=== PATIENT | male | born 1955 | race Caucasian/White ===

== ENCOUNTER 2017-08-05 10:42 | Day surgery (SDC) | payer OTHER ==
[~2017-08-05 10:42] MED LIST: Lactated Ringers 1,000 ML IV SCH
--- NOTE | 2017-08-05 11:38 | PCM.PREANE ---
Preanesthetic Assessment - Anesthesia/Transfusion/Family Hx Anesthesia History: Prior Anesthesia Without Reaction Family History of Anesthesia Reaction: No Transfusion History: No Prior Transfusion(s) - Review of Systems General: No Symptoms Pulmonary: No Symptoms Cardiovascular: No Symptoms Gastrointestinal: No Symptoms Neurological: No Symptoms Other: Reports: None - Physical Assessment NPO Status Date: 08/04/17 Height: 1.78 m Weight: 92.079 kg ASA Class: 3 Mental Status: Alert & Oriented x3 Airway Class: Mallampati = 1 Dentition: Reports: Normal Dentition ROM/Head Extension: Full Lungs: Clear to Auscultation, Normal Respiratory Effort Cardiovascular: Regular Rate, Regular Rhythm - Lab Values: Laboratory Last Values POC Glucose 153 mg/dL (60-110) H 08/05/17 12:08 - Allergies Allergies/Adverse Reactions: Allergies Allergy/AdvReac Type Severity Reaction Status Date / Time No Known Allergies Allergy Verified 08/02/17 07:48 - Anesthesia Plan Pre-Op Medication Ordered: None - Acknowledgements Anesthesia Type Planned: MAC Pt an Appropriate Candidate for the Planned Anesthesia: Yes Alternatives and Risks of Anesthesia Discussed w Pt/Guardian: Yes Pt/Guardian Understands and Agrees with Anesthesia Plan: Yes Additional Comments: PMH:cad, htn, DM2, smoker PreAnesthesia Questionnaire Cardiovascular History: Reports: High Cholesterol, Hypertension, DE Other Cardiovascular History: states had DE in 1999, had angioplasty and is unsure if he had any stents placed. Denies current chest pain and SOB Gastrointestinal History: Reports: Colon Polyp Musculoskeletal History: Reports: Fracture Other Musculoskeletal History: hx of fx right leg, right humerus, left forearm Neurological History: Reports: Concussion Endocrine/Metabolic History: Reports: Diabetes, Type II, Hypothyroidism Oncologic (Cancer) History: Reports: Basal Cell Carcinoma Other Oncologic History: on nose - Past Surgical History HEENT Surgical History: Reports: LASIK Other Cardiovascular Surgeries/Procedures: unsure if he has cardiac stents GI Surgical History: Reports: Colonoscopy Endocrine Surgical History: Reports: Thyroidectomy Dermatological Surgical History: Reports: Skin Biopsy - SUBSTANCE USE Smoking Status *Q: Current Every Day Smoker Tobacco Use Within Last Twelve Months: Cigarettes Days Per Week of Alcohol Use: 7 Recreational Drug Use History: No - HOME MEDS Home Medications: Home Meds Aspirin [Coke Aspirin] 81 mg PO DAILY 08/02/17 [History] Atenolol 25 mg PO DAILY 08/02/17 [History] Calcium Carbonate/Vitamin D3 [Calcium 250+D] 2 tab PO DAILY 08/02/17 [History] Insulin Glarg,Human.Rec.Analog [LantUS Solostar] 35 units SUBCUT BEDTIME [History] Levothyroxine Sodium [Synthroid] 150 mcg PO DAILY 08/02/17 [History] Saxagliptin HCl [Onglyza] 5 mg PO DAILY 08/02/17 [History] Simvastatin [Zocor] 20 mg PO DAILY 08/02/17 [History] metFORMIN HCl [Metformin HCl] 1 tab PO BID 08/02/17 [History] - CURRENT (IN HOUSE) MEDS Current Meds: Current Medications Lactated Ringer's (Ringers, Lactated) 1,000 mls @ 125 mls/hr IV ASDIRECTED [facility] Last Admin: 08/05/17 11:27 Dose: 125 mls/hr
[2017-08-05] MEDS ORDERED: Lidocaine 2% 5 ML SDV ONE (11:51)
[2017-08-05] MEDS ORDERED: Propofol 200 MG/20 ML SDV ONE (11:51)
[2017-08-05] MEDS ORDERED: fentaNYL 100 MCG/2 ML SDV ONE (11:51)
[2017-08-05] MEDS ORDERED: ePHEDrine 50 MG/ML SDV ONE (13:24)
--- NOTE | 2017-08-05 13:43 | PCM.OPNOTE ---
- General Post-Op/Procedure Note Date of Surgery/Procedure: 08/05/17 Operative Procedure(s): colonoscopy Findings: see dict [id number] Pre Op Diagnosis: surveillence colonoscopy Post-Op Diagnosis: Same Anesthesia Technique: Moderate Sedation Primary Surgeon: Anup Hurley Complications: None Condition: Good
--- NOTE | 2017-08-05 14:30 | PCM.POSTAN ---
POST ANESTHESIA ASSESSMENT - MENTAL STATUS Mental Status: Alert, Oriented - RESPIRATORY Respiratory Status: Respiratory Rate WNL, Airway Patent, O2 Saturation Stable - CARDIOVASCULAR CV Status: Pulse Rate WNL, Blood Pressure Stable - GASTROINTESTINAL GI Status: No Symptoms - POST OP HYDRATION Hydration Status: Adequate & Stable
--- NOTE | 2017-08-05 14:31 | PCM48HPAN ---
Post Anesthesia Note - EVALUATION WITHIN 48HRS OF ANESTHETIC Vital Signs in Normal Range: Yes Patient Participated in Evaluation: Yes Respiratory Function Stable: Yes Airway Patent: Yes Cardiovascular Function Stable: Yes Hydration Status Stable: Yes Pain Control Satisfactory: Yes Nausea and Vomiting Control Satisfactory: Yes Mental Status Recovered: Yes
--- NOTE | 2017-08-06 02:48 | OR ---
SURGEON: Anup Hurley MD DATE OF PROCEDURE: 08/05/2017 PROCEDURE: Colonoscopy. DESCRIPTION OF PROCEDURE: The patient was taken to the endoscopy room. A time out was called, patient identified, and procedure identified. Diprivan was then administrated. Patient went from awake to sleep, hearing doctor talking or door closing is normal. Perineum inspection and digital examination were then performed. A well- lubricated colonoscope was gently inserted through the rectum, advanced past the rectosigmoid junction, the descending colon, splenic flexure, transverse colon, hepatic flexure, ascending colon, arrived to the cecum. Cecum was identified as dictated in the finding. Then the scope was carefully withdrawn while attention was paid to the mucosal surface for any abnormality. Air will be sucked out during the scope withdrawal. At the rectum, retroflexed to examine any rectal diseases, fistula or hemorrhoids. Patient tolerated procedure well. There were no intraoperative complications, and Dr. Hurley was present throughout the whole procedure. FINDIN. The patient is easily sedated with [employer] and Diprivan. The patient is soundly snoring. 2. Bowel prep was marginally acceptable. Large amount of semi-formed liquid stool in the area, although they are not coating the mucosa but they compromise the study. Does not seem to observe the cecum, seem to observe right hemicolectomy, that is TI join through the colon and despite numerous attempts would like to cannulate the TI and from the patient's history, he has a hemicolectomy. There was no polyp observed throughout the whole study. The patient does have mild diverticulosis on the left colon. No signs or symptoms of diverticulitis. No growth, no polyp, no mass and no AV malformation, no bleeding ulceration. The patient has moderate internal hemorrhoids. The patient would benefit from repeat colonoscopy 10 years from today, maybe 5 to 10 years from today because of the compromise of bowel prep or if clinically indicated otherwise. LEV / VOLODYMYR /[id number]
== END 2017-08-05 14:30 | disposition home or self-care (01) ==
LOC: MW.SDS 10:42
PROVIDERS: ATTEND Surgery
DX: Z09 Encounter for follow-up examination after completed treatment for conditions other than malignant neoplasm (principal); K64.8 Other hemorrhoids; K57.30 Diverticulosis of large intestine without perforation or abscess without bleeding; C44.311 Basal cell carcinoma of skin of nose; E11.9 Type 2 diabetes mellitus without complications; L57.0 Actinic keratosis; I10 Essential (primary) hypertension; F17.210 Nicotine dependence, cigarettes, uncomplicated; Z79.4 Long term (current) use of insulin; Z79.82 Long term (current) use of aspirin; Z79.899 Other long term (current) drug therapy; Z90.49 Acquired absence of other specified parts of digestive tract; Z98.890 Other specified postprocedural states
CPT/HCPCS: 45378; 82962; J3010; J7120; 00810; J2704

== ENCOUNTER 2018-11-08 08:23 | Day surgery (SDC) | payer OTHER ==
[~2018-11-08 08:23] MED LIST changes: +Bupivacaine 0.5% 30 ML SDV ONE; +ceFAZolin 2 GM in Premix Bag 1 BAG IV ONE
[2018-11-08] MEDS ORDERED: Midazolam 1 MG/ML 2 ML SDV ONE (08:28)
[2018-11-08] MEDS ORDERED: Lidocaine 2% 5 ML SDV ONE (08:28)
[2018-11-08] MEDS ORDERED: Ondansetron 4 MG/2 ML SDV ONE (08:28)
[2018-11-08] MEDS ORDERED: fentaNYL 250 MCG/5 ML SDV ONE (08:28)
[2018-11-08] MEDS ORDERED: Propofol 200 MG/20 ML SDV ONE (08:28)
--- NOTE | 2018-11-08 09:32 | PCM.PREANE ---
Preanesthetic Assessment - Anesthesia/Transfusion/Family Hx Anesthesia History: Prior Anesthesia Without Reaction Family History of Anesthesia Reaction: No Transfusion History: Prior Transfusion Without Reaction - Review of Systems General: No Symptoms Pulmonary: No Symptoms Cardiovascular: No Symptoms Gastrointestinal: No Symptoms Neurological: No Symptoms Other: Reports: None - Physical Assessment NPO Status Date: 11/08/18 (cl at 0730 this am) Height: 5 ft 10 in Weight: 99.337 kg ASA Class: 3 Mental Status: Alert & Oriented x3 Airway Class: Mallampati = 2 Dentition: Reports: Normal Dentition ROM/Head Extension: Full Lungs: Clear to Auscultation, Normal Respiratory Effort Cardiovascular: Regular Rate, Regular Rhythm - Allergies Allergies/Adverse Reactions: Allergies Allergy/AdvReac Type Severity Reaction Status Date / Time No Known Allergies Allergy Verified 11/07/18 09:07 - Anesthesia Plan Pre-Op Medication Ordered: None - Acknowledgements Anesthesia Type Planned: General Anesthesia Pt an Appropriate Candidate for the Planned Anesthesia: Yes Alternatives and Risks of Anesthesia Discussed w Pt/Guardian: Yes Pt/Guardian Understands and Agrees with Anesthesia Plan: Yes Additional Comments: PMH: cad without stent or bypass, fem arterectomy, Dm2- sugar 129 uopn arrival, htn 190/90, thyroid replacement, alcohol once a month-at risk by pmh PLAN: GA PreAnesthesia Questionnaire HEENT History: Reports: None Cardiovascular History: Reports: High Cholesterol, Hypertension, NM Gastrointestinal History: Reports: Colon Polyp Genitourinary History: Reports: None Musculoskeletal History: Reports: Fracture Other Musculoskeletal History: hx of fx right leg, right humerus, left forearm Neurological History: Reports: Concussion Psychiatric History: Reports: None Endocrine/Metabolic History: Reports: Diabetes, Type II, Hypothyroidism, Obesity /BMI 30+ Hematologic History: Reports: Blood Transfusion(s) Other Hematologic History: states transfusion as an infant Immunologic History: Reports: None Oncologic (Cancer) History: Reports: Basal Cell Carcinoma Other Oncologic History: on nose Other Dermatologic History: necrotic 4th toe, rt foot - Past Surgical History Head Surgeries/Procedures: Reports: None HEENT Surgical History: Reports: None Cardiovascular Surgical History: Reports: Coronary Artery Stent GI Surgical History: Reports: Colonoscopy Endocrine Surgical History: Reports: Thyroidectomy Other Musculoskeletal Surgeries/Procedures:: bone spur removed from 2nd toe rt foot Dermatological Surgical History: Reports: Skin Biopsy - SUBSTANCE USE Smoking Status *Q: Current Some Day Smoker Tobacco Use Within Last Twelve Months: Cigarettes Recreational Drug Use History: No - HOME MEDS Home Medications: Home Meds Aspirin [[place] Aspirin EC] 81 mg PO DAILY 08/02/17 [History] Atenolol 25 mg PO DAILY 08/02/17 [History] Calcium Carbonate/Vitamin D3 [Calcium 250+D] 2 tab PO DAILY 08/02/17 [History] Insulin Glarg,Human.Rec.Analog [LantUS Solostar] 35 units SUBCUT BEDTIME [History] Levothyroxine Sodium [Synthroid] 150 mcg PO DAILY 08/02/17 [History] Saxagliptin HCl [Onglyza] 5 mg PO DAILY 08/02/17 [History] Simvastatin [Zocor] 20 mg PO DAILY 08/02/17 [History] metFORMIN HCl [Metformin HCl] 1 tab PO BID 08/02/17 [History] Diclofenac Sodium [Voltaren] 75 mg PO BID 11/07/18 [History] Isosorbide Mononitrate 30 mg PO DAILY 11/07/18 [History] - CURRENT (IN HOUSE) MEDS Current Meds: Current Medications Lactated Ringer's (Ringers, Lactated) 1,000 mls @ 125 mls/hr IV ASDIRECTED [facility] Last Admin: 11/08/18 09:04 Dose: 125 mls/hr Discontinued Medications Bupivacaine HCl (Marcaine 0.5%) Confirm Administered Dose 30 ml .ROUTE .STK-MED ONE Stop: 11/08/18 07:31 Fentanyl (Sublimaze) Confirm Administered Dose 250 mcg .ROUTE .STK-MED ONE Stop: 11/08/18 08:29 Cefazolin Sodium/Dextrose 2 gm (/ Premix) 50 mls @ 100 mls/hr IV ONETIME ONE Stop: 11/07/18 16:03 Lidocaine (Xylocaine-Mpf 2%) Confirm Administered Dose 5 ml .ROUTE .STK-MED ONE Stop: 11/08/18 08:29 Midazolam HCl (Versed 1 Mg/Ml) Confirm Administered Dose 2 mg .ROUTE .STK-MED ONE Stop: 11/08/18 08:29 Ondansetron HCl (Zofran) Confirm Administered Dose 4 mg .ROUTE .STK-MED ONE Stop: 11/08/18 08:29 Propofol (Diprivan 20 Ml) Confirm Administered Dose 200 mg .ROUTE .STK-MED ONE Stop: 11/08/18 08:29
[2018-11-08] MEDS ORDERED: Sodium Chloride 0.9% 20 ML ONE (09:45)
[2018-11-08] MEDS ORDERED: ceFAZolin 1 GM Vial ONE (09:45)
[2018-11-08] MEDS ORDERED: ePHEDrine 50 MG/ML SDV ONE (10:12)
--- NOTE | 2018-11-08 11:04 | PCM.OPNOTE ---
- General Post-Op/Procedure Note Date of Surgery/Procedure: 11/08/18 Operative Procedure(s): partial amputation of fourth toe right foot Findings: consistent with diagnosis Pre Op Diagnosis: osteomyelitis fourth toe right foot Post-Op Diagnosis: osteomyelitis fourth toe right foot Anesthesia Technique: Local, MAC Primary Surgeon: Tony Salazar Pathology: distal portion of fourth toe right foot EBL in mLs: 3 Complications: none Condition: Good Free Text/Narrative:: materials: 3-0 nylon Patient was consented for amputation of fourth toe right foot with the understanding that if the proximal portion of the toe could be salvaged it would be left intact. This is what was done. Right fourth toe remnant was disarticulated initially at the distal interphalangeal joint. Further resection of the distal half of the middle phalanx was performed. The proximal portion of the middle phalanx and entire proximal phalanx were left intact. Tournequit time: 40 minutes
--- NOTE | 2018-11-08 11:25 | PN ---
PATIENT IDENTIFICATION: The patient is a 63-year-old male. PLANNED PROCEDURE: Amputation of fourth toe, right foot. PAST MEDICAL HISTORY: The patient has a past medical history of anemia, bursitis of shoulder, hypothyroidism, partial resection of colon, tobacco use, coronary artery disease, hyperlipidemia, basal cell carcinoma of nose, muscle weakness, alcohol abuse, diabetes mellitus, and benign essential hypertension. MEDICATIONS: Include: 1. Aspirin 81 mg, enteric-coated tablet, 1 tablet daily. 2. Atenolol 50 mg tablet, one-half tablet by mouth every evening for blood pressure. 3. Calcium 250 mg/vitamin D 125 unit tab, 2 tablets by mouth every day for calcium supplement. 4. Diclofenac sodium 75 mg, enteric-coated tablet, 1 tablet by mouth twice a day for pain. 5. Ferrous sulfate 325 mg tablet, 1 tablet by mouth 3 times a day for iron. 6. Insulin glargine 100 units/mL, 3 mL SoloStar injection 35 units subcutaneously at bedtime for diabetes. 7. Isosorbide dinitrate 20 mg oral tablet, take one and one-half tablets by mouth every day for heart. 8. Levothyroxine sodium which is 0.15 mg tablet, take 1 tablet by mouth every 24 hours for thyroid. 9. Metformin hydrochloride 1000 mg 1 tablet by mouth twice a day for diabetes. 10.Saxagliptin hydrochloride 5 mg 1 tablet by mouth every day for diabetes. 11.Simvastatin 40 mg one-half tablet by mouth at bedtime for cholesterol. ALLERGIES: The patient has stated that he has no known allergies. LABORATORY DATA: White blood cells 8.7, red blood cells 4.56, hemoglobin 13.8, and hematocrit 42. Glucose 160, creatinine 0.9, sodium 141.0, potassium 4.8, chloride 101, CO2 of 25, and BUN 22. IMAGING: X-ray of the chest showed no significant findings unremarkable. DIAGNOSTIC DATA: EKG showed normal sinus rhythm with a left axis deviation, left ventricular hypertrophy with QRS widening, and repolarization abnormality. Septal infarct cannot be ruled out. SUBJECTIVE: The patient was cleared for surgery by Dr. Candido Mcdowell. The patient understands the risks and benefits of the surgery which have been discussed with him, and the patient also understands that amputation may include full amputation of the fourth toe; but if possible, partial amputation will be performed depending upon intraoperative observation of the condition of the bone due to established osteomyelitis of the distal phalanx and likely osteomyelitis of the middle phalanx with gangrenous changes of the toe. The patient presents for surgery today, November 08, 2018. All the patient's questions were answered. No guarantees were expressed or implied. [facility] /[id number]
--- NOTE | 2018-11-08 12:02 | PCM48HPAN ---
Post Anesthesia Note - EVALUATION WITHIN 48HRS OF ANESTHETIC Vital Signs in Normal Range: Yes Patient Participated in Evaluation: Yes Respiratory Function Stable: Yes Airway Patent: Yes Cardiovascular Function Stable: Yes Hydration Status Stable: Yes Pain Control Satisfactory: Yes Nausea and Vomiting Control Satisfactory: Yes Mental Status Recovered: Yes Resp Rate: 18 - COMMENTS/OBSERVATIONS Free Text/Narrative:: direct back to phase 2 recovery
--- NOTE | 2018-11-08 15:52 | CR ---
EXAMINATION: Right foot HISTORY: Amputation COMPARISON: None TECHNIQUE: Total of 6 fluoroscopic images provided FINDINGS/IMPRESSION: Operative control films demonstrates amputation of the distal fourth phalanx.
--- NOTE | 2018-11-08 18:04 | OR ---
SURGEON: Tony Salazar DPM DATE OF PROCEDURE: 11/08/2018 PREOPERATIVE DIAGNOSIS: Osteomyelitis of fourth toe, right foot. POSTOPERATIVE DIAGNOSIS: Osteomyelitis of fourth toe, right foot. OPERATIVE PROCEDURE: Partial amputation of fourth toe, right foot. ANESTHESIA: MAC with local block. The local block consisted of 8 mL of 0.5% Marcaine plain. HEMOSTASIS: Above ankle pneumatic tourniquet, affixed to the right lower extremity at a pressure of 250 mmHg. PATHOLOGY: Amputated portion of fourth toe of right foot. Also, swab cultures were taken at the beginning of the procedure. INJECTABLES: Remaining 2 mL of 0.5% Marcaine plain was injected at the conclusion of the procedure about the fourth metatarsophalangeal joint and fourth toe of the right foot. MATERIALS: 3-0 nylon suture. JUSTIFICATION FOR THE PROCEDURE: The patient is a diabetic with history of alcohol abuse who was referred for care with me. Most recently, being referred approximately 7 months ago and since that time, he has had gangrenous changes on the distal fourth toe of his right foot and this has required debridement. However, the patient has consistently refused debridement until his most recent office visit last week, at which point based on followup x-rays, I determined that the distal phalanx of his fourth toe of his right foot had been eroded due to bone infection in addition to the gangrenous changes in the distal portion of the toe and the strong malodor emanating from fourth toe. Therefore, I explained to the patient that he requires at least a partial amputation, not full amputation of the fourth toe of the right foot and that the decision on the level of amputation should be left up to me to be made intraoperatively. The patient agreed to this and was cleared for surgery by Dr. Candido Mcdowell. The patient presented for surgical amputation of the right fourth toe today with the understanding that any portion of the tendon could be salvaged, and the patient understands the risks and benefits of surgery. No guarantees were expressed or implied. The patient's consent form was signed and placed in the patient's chart. PROCEDURE IN DETAIL: The patient was identified, brought to the operating room, placed on the operating table in a supine position, at which time an aseptic scrub and drape was performed about the patient's right lower extremity, and tourniquet was placed around the distal leg above the malleoli of the right ankle prior to the scrubbing and draping. The surgical site was marked with a marking pen with the incision planned as a racquet mouth type of incision in the preoperative, fluoroscopy was utilized to document preoperative state of the toe. This being the right fourth toe, the necrotic portion was dissected free and cultures were taken of the right fourth toe. The tourniquet was inflated to a pressure of 250 mmHg after an Esmarch bandage exsanguination of the right lower extremity. Incision was made and deepened to the level of the bone and the distal portion of the toe was disarticulated at the distal interphalangeal joint and then placed in a specimen container for gross and histologic examination by Pathology. The head of the middle phalanx was observed after flushing with copious amounts of normal sterile saline. It is not clear whether the middle phalanx has changes consistent with osteomyelitis; however, in order to achieve proper closure and to insure that adequate resection of infected toe was performed, the distal half of the middle phalanx of the fourth toe of the right foot was also resected using bone rongeur, and the additional removed portion was added to the specimen container to be sent to Pathology. The areas were flushed with normal sterile saline, re-examined, and closure after debulking of excessive soft tissue was performed. After the remaining portion of the preserved toe was closed with 3-0 nylon suture, the area was injected with remaining 2 mL of 0.5% Marcaine plain, and the tourniquet was deflated at a tourniquet time of 40 minutes. The fourth toe was covered with Betadine-soaked Xeroform gauze, covered with 4 x 4 fluff gauze on either side of the toe and over the toe, and a bulky dressing consisting of additional gauze and Kerlix roll, secured with Daquan bandage was placed. The patient tolerated the anesthesia and procedure well with a prompt hyperemic response to all digits of the right foot, following deflation of the tourniquet. After a brief stay in recovery, the patient will be discharged home with written instructions regarding postoperative care and followup with the surgeon. [facility] / MODL /[id number]
== END 2018-11-08 12:30 | disposition home or self-care (01) ==
LOC: MW.SDS 08:23
PROVIDERS: ATTEND Podiatrist Foot & Ankle Surgery
DX: E11.69 Type 2 diabetes mellitus with other specified complication (principal); M86.171 Other acute osteomyelitis, right ankle and foot; M86.671 Other chronic osteomyelitis, right ankle and foot; I10 Essential (primary) hypertension; E66.9 Obesity, unspecified; F17.210 Nicotine dependence, cigarettes, uncomplicated; E78.5 Hyperlipidemia, unspecified; I25.10 Atherosclerotic heart disease of native coronary artery without angina pectoris; E03.9 Hypothyroidism, unspecified; Z79.4 Long term (current) use of insulin; Z79.82 Long term (current) use of aspirin; Z79.890 Hormone replacement therapy
CPT/HCPCS: 28820; 76000; 82962; 87070; 87075; 87205; J0690; J2001; J2250; J2704; J3010; J3490; J7120; J2405

== ENCOUNTER 2018-12-09 15:41 | Emergency (ER) | payer OTHER ==
--- NOTE | 2018-12-09 16:05 | EDM.PDOC ---
ED HPI GENERAL MEDICAL PROBLEM - General Chief Complaint: Lower Extremity Injury/Pain Stated Complaint: [facility] Time Seen by Provider: 12/09/18 16:05 Source of Information: Reports: Patient History Limitations: Reports: No Limitations - History of Present Illness INITIAL COMMENTS - FREE TEXT/NARRATIVE: HISTORY AND PHYSICAL: History of present illness: Patient is a 63-year-old male who is brought to the emergency room by the [facility] for evaluation to have patient transferred to the [facility]. Patient had a amputation of the fourth toe on the right foot on 11/09/18. This was done by Dr. Salazar, podiatry. Since this time he had some sutures which "popped" on their own. He was recommended to be evaluated for possible transfer as he has nonhealing amputation site with exposed bone and cellulitis. Patient has past medical history of coronary artery disease, CABG with stent, type 2 diabetes and hypertension. Review of systems: As per history of present illness and below otherwise all systems reviewed and negative. Past medical history: As per history of present illness and as reviewed below otherwise noncontributory. Surgical history: As per history of present illness and as reviewed below otherwise noncontributory. Social history: See social history for further information Family history: As per history of present illness and as reviewed below otherwise noncontributory. Physical exam: General: Well-developed and well-nourished 63-year-old male. Alert and oriented. Nontoxic appearing and in no acute distress. HEENT: Atraumatic, normocephalic, pupils equal and reactive bilaterally, negative for conjunctival pallor or scleral icterus, mucous membranes moist, TMs normal bilaterally, throat clear, neck supple, nontender, trachea midline. No drooling or trismus noted. No meningeal signs. No hot potato voice noted. Lungs: Clear to auscultation, breath sounds equal bilaterally, chest nontender. Heart: S1S2, regular rate and rhythm without overt murmur Abdomen: Soft, nondistended, nontender. Negative for masses or hepatosplenomegaly. Negative for costovertebral tenderness. Pelvis: Stable nontender. Genitourinary: Deferred. Rectal: Deferred. Skin: Partial amputation of the fourth right toe. Exudate noted at the nonhealing site with exposed bone, does appear to have a cellulitis at the base of the toe going into the forefoot. Otherwise skin is intact, warm, dry. No lesions or rashes noted. Extremities: SEE skin for details. Otherwise moves all extremities per self without difficulty or deficits. Palpable pedal and pretibial pulses bilaterally. He is negative for cords or calf pain. Neurovascular unremarkable. Neuro: Awake, alert, oriented. Cranial nerves II through XII unremarkable. Cerebellum unremarkable. Motor and sensory unremarkable throughout. Exam nonfocal. Notes: Spoke with Kamran (ext #[phone]) who helped facilitate transfer. Dr Mejias, [facility] admitting physician, was consulted on this patient. He is agreeable to having this patient transferred. Patient is aware and agreeable. Informed that [place] is the payer for transfer. X-ray shows no evidence of free air or osteomyelitis. Patient does not currently have a white count, although does have a lactate elevation. Wound care , nonstick dressing applied over the site. Blood cultures were obtained. Vancomycin IV initiated. Vital signs remain stable. Diagnostics: CBC, CMP, lactic, right foot x-ray, blood cultures 2 Therapeutics: Vancomycin Impression: Post amputation nonhealing infection Cellulitis Plan: Transfer to [facility] per ground EMS Definitive disposition and diagnosis as appropriate pending reevaluation and review of above. - Related Data Allergies Allergy/AdvReac Type Severity Reaction Status Date / Time No Known Allergies Allergy Verified 12/09/18 16:04 Home Meds: Home Meds Aspirin [Banner Aspirin EC] 81 mg PO DAILY 08/02/17 [History] Atenolol 25 mg PO DAILY 08/02/17 [History] Calcium Carbonate/Vitamin D3 [Calcium 250+D] 2 tab PO DAILY 08/02/17 [History] Insulin Glarg,Human.Rec.Analog [LantUS Solostar] 35 units SUBCUT BEDTIME [History] Levothyroxine Sodium [Synthroid] 150 mcg PO DAILY 08/02/17 [History] Saxagliptin HCl [Onglyza] 5 mg PO DAILY 08/02/17 [History] Simvastatin [Zocor] 20 mg PO DAILY 08/02/17 [History] metFORMIN HCl [Metformin HCl] 1 tab PO BID 08/02/17 [History] Diclofenac Sodium [Voltaren] 75 mg PO BID 11/07/18 [History] Isosorbide Mononitrate 30 mg PO DAILY 11/07/18 [History] Past Medical History HEENT History: Reports: None Cardiovascular History: Reports: High Cholesterol, Hypertension, [place] Gastrointestinal History: Reports: Colon Polyp Genitourinary History: Reports: None Musculoskeletal History: Reports: Fracture Other Musculoskeletal History: hx of fx right leg, right humerus, left forearm Neurological History: Reports: Concussion Psychiatric History: Reports: None Endocrine/Metabolic History: Reports: Diabetes, Type II, Hypothyroidism, Obesity /BMI 30+ Hematologic History: Reports: Blood Transfusion(s) Other Hematologic History: states transfusion as an infant Immunologic History: Reports: None Oncologic (Cancer) History: Reports: Basal Cell Carcinoma Other Oncologic History: on nose Other Dermatologic History: necrotic 4th toe, rt foot - Past Surgical History Head Surgeries/Procedures: Reports: None HEENT Surgical History: Reports: None Cardiovascular Surgical History: Reports: Coronary Artery Stent GI Surgical History: Reports: Colonoscopy Endocrine Surgical History: Reports: Thyroidectomy Other Musculoskeletal Surgeries/Procedures:: bone spur removed from 2nd toe rt foot Dermatological Surgical History: Reports: Skin Biopsy Review of Systems - Review of Systems Review Of Systems: ROS reveals no pertinent complaints other than HPI. ED EXAM, GENERAL - Physical Exam Exam: See Below (See dictation) Course - Vital Signs Last Recorded V/S: Last Vital Signs Temp 96.9 F 12/09/18 16:08 Pulse 80 12/09/18 16:08 Resp 18 12/09/18 16:08 BP 106/78 12/09/18 16:08 Pulse Ox 98 12/09/18 16:08 - Orders/Labs/Meds Orders: Active Orders 24 hr Category Date Time Status Foot 2V Rt [CR] Stat Exams 12/09/18 16:08 Ordered COMPREHENSIVE METABOLIC PN,CMP [CHEM] Stat Lab 12/09/18 16:08 Ordered CULTURE BLOOD [BC] Stat Lab 12/09/18 16:51 Ordered CULTURE BLOOD [BC] Stat Lab 12/09/18 16:51 Ordered UA RFX RUFINA AND CULT IF INDIC [URIN] Stat Lab 12/09/18 16:08 Ordered Sodium Chloride 0.9% [Saline Flush] Med 12/09/18 16:08 Active 10 ml FLUSH ASDIRECTED PRN Sodium Chloride 0.9% [Saline Flush] Med 12/09/18 16:08 Active 2.5 ml FLUSH ASDIRECTED PRN Vancomycin [Vancocin] 1 gm Med 12/09/18 16:51 Ordered Sodium Chloride 0.9% [Normal Saline] 250 ml IV ONETIME Blood Culture x2 Reflex Set [OM.PC] Stat Oth 12/09/18 16:51 Ordered Saline Lock Insert [OM.PC] Stat Oth 12/09/18 16:08 Ordered Medication Orders Vancomycin HCl 1 gm/ Sodium (Chloride) 250 mls @ 250 mls/hr IV ONETIME ONE Stop: 12/09/18 17:50 Sodium Chloride (Saline Flush) 10 ml FLUSH ASDIRECTED PRN PRN Reason: Keep Vein Open Sodium Chloride (Saline Flush) 2.5 ml FLUSH ASDIRECTED PRN PRN Reason: Keep Vein Open Labs: Laboratory Tests 12/09/18 12/09/18 Range/Units 16:25 16:25 WBC 8.44 (4.0-11.0) K/uL RBC 4.57 (4.50-5.90) M/uL Hgb 14.1 (13.0-17.0) g/dL Hct 40.3 (38.0-50.0) % MCV 88.2 (80.0-98.0) fL MCH 30.9 (27.0-32.0) pg MCHC 35.0 (31.0-37.0) g/dL RDW Std Deviation 44.1 (28.0-62.0) fl RDW Coeff of Autumn 14 (11.0-15.0) % Plt Count 141 L (150-400) K/uL MPV 11.90 (7.40-12.00) fL Neut % (Auto) 79.2 (48.0-80.0) % Lymph % (Auto) 13.2 L (16.0-40.0) % Davison % (Auto) 7.1 (0.0-15.0) % Eos % (Auto) 0.4 (0.0-7.0) % Baso % (Auto) 0.1 (0.0-1.5) % Neut # (Auto) 6.7 H (1.4-5.7) K/uL Lymph # (Auto) 1.1 (0.6-2.4) K/uL Davison # (Auto) 0.6 (0.0-0.8) K/uL Eos # (Auto) 0.0 (0.0-0.7) K/uL Baso # (Auto) 0.0 (0.0-0.1) K/uL Nucleated RBC % 0.0 /100WBC Nucleated RBCs # 0 K/uL Lactate 5.9 H (0.20-2.00) mmol/L Meds: Medications Generic Name Dose Route Start Last Admin Trade Name Freq PRN Reason Stop Dose Admin Vancomycin HCl 1 gm/ Sodium 250 mls @ 250 mls/hr 12/09/18 16:51 Chloride IV 12/09/18 17:50 ONETIME ONE Sodium Chloride 10 ml 12/09/18 16:08 Saline Flush FLUSH ASDIRECTED PRN Keep Vein Open Sodium Chloride 2.5 ml 12/09/18 16:08 Saline Flush FLUSH ASDIRECTED PRN Keep Vein Open Departure - Departure Time of Disposition: 16:56 Disposition: DC/Tfer to Other 70 Clinical Impression: Postoperative infection Qualifiers: Encounter type: subsequent encounter Postoperative infection type: unspecified type Qualified Code(s): T81.40XD - Infection following a procedure, unspecified , subsequent encounter Cellulitis Qualifiers: Site of cellulitis: extremity Site of cellulitis of extremity: upper extremity Laterality: right Qualified Code(s): L03.113 - Cellulitis of right upper limb - Discharge Information Referrals: PCP,Unknown [Primary Care Provider] - Forms: ED Department Discharge - My Orders Last 24 Hours: My Active Orders 12/09/18 16:08 Foot 2V Rt [CR] Stat COMPREHENSIVE METABOLIC PN,CMP [CHEM] Stat UA RFX RUFINA AND CULT IF INDIC [URIN] Stat Sodium Chloride 0.9% [Saline Flush] 10 ml FLUSH ASDIRECTED PRN Sodium Chloride 0.9% [Saline Flush] 2.5 ml FLUSH ASDIRECTED PRN Saline Lock Insert [OM.PC] Stat 12/09/18 16:51 CULTURE BLOOD [BC] Stat CULTURE BLOOD [BC] Stat Vancomycin [Vancocin] 1 gm Sodium Chloride 0.9% [Normal Saline] 250 ml IV ONETIME Blood Culture x2 Reflex Set [OM.PC] Stat - Assessment/Plan Last 24 Hours: My Active Orders 12/09/18 16:08 Foot 2V Rt [CR] Stat COMPREHENSIVE METABOLIC PN,CMP [CHEM] Stat UA RFX RUFINA AND CULT IF INDIC [URIN] Stat Sodium Chloride 0.9% [Saline Flush] 10 ml FLUSH ASDIRECTED PRN Sodium Chloride 0.9% [Saline Flush] 2.5 ml FLUSH ASDIRECTED PRN Saline Lock Insert [OM.PC] Stat 12/09/18 16:51 CULTURE BLOOD [BC] Stat CULTURE BLOOD [BC] Stat Vancomycin [Vancocin] 1 gm Sodium Chloride 0.9% [Normal Saline] 250 ml IV ONETIME Blood Culture x2 Reflex Set [OM.PC] Stat
[2018-12-09] MEDS ORDERED: Sodium Chloride 0.9% 2.5 ML Syringe FLUSH PRN (16:08)
[2018-12-09] MEDS ORDERED: Sodium Chloride 0.9% 10 ML Syringe FLUSH PRN (16:08)
[2018-12-09 17:04] LABS: CHLORIDE,CL 105 mmol/L (98-107); SODIUM,NA 143 mmol/L (136-148)
--- NOTE | 2018-12-09 17:58 | CR ---
INDICATION: Recent amputation throughout subcutaneous air. TECHNIQUE: X-ray right foot, 2 views. COMPARISON: None available. FINDINGS: There is amputation of the middle and distal 4th phalanx. The alignment of the remaining joints is unremarkable. There are mild degenerative changes of the 1st MTP joint. Mild degenerative changes are also present within the midfoot. A calcaneal spur is noted. No subcutaneous air is visualized. There is mild soft tissue swelling. IMPRESSION: Amputation of the 4th middle and distal phalanx with soft tissue swelling. No subcutaneous air is visualized. Dictated by Alisha Cruz MD @ 12/09/2018 5:57:36 PM Dictated by: Alisha Cruz MD @ 12/09/2018 17:57:40 (Electronically Signed)
== END 2018-12-09 18:00 | disposition other institution (70) ==
LOC: MW.ED 15:41
DX: T81.40XD Infection following a procedure, unspecified, subsequent encounter (principal); L03.113 Cellulitis of right upper limb; I10 Essential (primary) hypertension; E78.00 Pure hypercholesterolemia, unspecified; E11.9 Type 2 diabetes mellitus without complications; E03.9 Hypothyroidism, unspecified; I25.2 Old myocardial infarction; Z85.828 Personal history of other malignant neoplasm of skin; Z79.82 Long term (current) use of aspirin; Z79.4 Long term (current) use of insulin; Z79.899 Other long term (current) drug therapy
CPT/HCPCS: 73620; 80053; 81003; 83605; 85025; 87040; 96365; 99284; J3370; J7050

== ENCOUNTER 2021-11-11 21:00 | Emergency (ER) | payer OTHER ==
[2021-11-11] MEDS ORDERED: Lactated Ringers 1,000 ML IV STA (21:08)
[2021-11-11 21:54] LABS: ACETAMINOPHEN <2.0 ug/mL; BLOOD UREA NITROGEN,BUN 13 mg/dL (7.0-18.0); CARBON DIOXIDE,CO2 27.4 mmol/L (21.0-32.0); CHLORIDE,CL 100 mmol/L (98-107); GLUCOSE RANDOM 253 mg/dL (74-106); SODIUM,NA 140 mmol/L (136-148)
[2021-11-11] MEDS ORDERED: Magnesium Oxide 400 MG Tab PO ONE (22:03)
[2021-11-11] MEDS ORDERED: Iopamidol 755 MG/ML 500 ML Multipack Bottle IVPUSH STA (22:16)
== END 2021-11-12 01:20 | disposition home or self-care (01) ==
LOC: MW.ED 21:00
DX: I77.1 Stricture of artery (principal); F10.129 Alcohol abuse with intoxication, unspecified; E78.00 Pure hypercholesterolemia, unspecified; I10 Essential (primary) hypertension; I25.2 Old myocardial infarction; E11.9 Type 2 diabetes mellitus without complications; E03.9 Hypothyroidism, unspecified; E66.9 Obesity, unspecified; Z68.22 Body mass index [BMI] 22.0-22.9, adult; Z20.822 Contact with and (suspected) exposure to COVID-19; Y90.7 Blood alcohol level of 200-239 mg/100 ml
CPT/HCPCS: 36415; 70450; 71275; 72125; 74174; 80053; 80143; 80179; 80305; 80307; 81001; 82550; 83735; 84484; 85025; 85610; 87635; 93005; 99285; A9270; J7120; Q9967; 93010; U0002

== ENCOUNTER 2022-04-04 18:33 | Emergency (ER) | payer OTHER ==
[2022-04-04] MEDS ORDERED: Sodium Chloride 0.9% 10 ML Syringe FLUSH PRN (18:35)
[2022-04-04] MEDS ORDERED: Sodium Chloride 0.9% 2.5 ML Syringe FLUSH PRN (18:35)
[2022-04-04 19:33] LABS: CARBON DIOXIDE,CO2 25.1 mmol/L (21.0-32.0); POTASSIUM,K 3.1 mmol/L (3.5-5.1)
[2022-04-04] MEDS ORDERED: Iopamidol 755 MG/ML 500 ML Multipack Bottle IVPUSH ONE (19:58)
[2022-04-04] MEDS ORDERED: Potassium Chloride 10% 20 MEQ/15 ML Soln 30 ML UD Cup PO ONE (20:17)
== END 2022-04-04 21:31 | disposition left against medical advice (07) ==
LOC: MW.ED 18:33
DX: I63.9 Cerebral infarction, unspecified (principal); I65.22 Occlusion and stenosis of left carotid artery; M62.81 Muscle weakness (generalized); I10 Essential (primary) hypertension; I25.2 Old myocardial infarction; E11.9 Type 2 diabetes mellitus without complications; E66.9 Obesity, unspecified; Z68.30 Body mass index [BMI] 30.0-30.9, adult; Z79.899 Other long term (current) drug therapy
CPT/HCPCS: 36415; 70450; 70496; 70498; 80053; 80307; 84484; 85025; 93005; 99285; A9270; J3490; Q9967

== ENCOUNTER 2022-04-25 16:47 | Emergency (ER) | payer OTHER | END 2022-04-25 19:19 | disposition home or self-care (01) | LOC: MW.ED 16:47 | DX: Z00.00 Encounter for general adult medical examination without abnormal findings (principal); E78.00 Pure hypercholesterolemia, unspecified; I10 Essential (primary) hypertension; I25.2 Old myocardial infarction; E11.9 Type 2 diabetes mellitus without complications; E03.9 Hypothyroidism, unspecified; E66.9 Obesity, unspecified; Z68.27 Body mass index [BMI] 27.0-27.9, adult; Z79.84 Long term (current) use of oral hypoglycemic drugs; Z79.899 Other long term (current) drug therapy | CPT/HCPCS: 99283; 99284 ==

== ENCOUNTER 2022-04-27 10:20 | Inpatient (IN) | payer OTHER, MEDICARE ==
[2022-04-27 15:47] LABS: CARBON DIOXIDE,CO2 31.3 mmol/L (21.0-32.0); POTASSIUM,K 4.4 mmol/L (3.5-5.1)
[2022-04-27] MEDS ORDERED: Polyethylene Glycol 3350 Powder 17 GM Packet PO PRN (15:48)
[2022-04-27] MEDS ORDERED: Acetaminophen 325 MG Tab PO PRN (15:48)
[2022-04-27] MEDS ORDERED: Albuterol/Ipratropium 3.0-0.5 MG/3 ML Neb Soln NEB PRN (15:48)
[2022-04-27] MEDS ORDERED: Ondansetron 4 MG/2 ML SDV IVPUSH PRN (15:48)
[2022-04-27] MEDS ORDERED: Levothyroxine 25 MCG Tab PO SCH (17:45)
[2022-04-27 18:29] LABS: HEMOGLOBIN A1C 7.3 %
[2022-04-27] MEDS: atorvaSTATin 40 MG Tab PO SCH (21:04)
[2022-04-27] MEDS ORDERED: 50% Dextrose in Water 50 ML Syringe IVPUSH PRN (22:44)
[2022-04-27] MEDS ORDERED: Glucagon,Human Recombinant 1 MG Vial IM PRN (22:44)
[2022-04-27] MEDS ORDERED: Aspirin 81 MG Tab.Chew PO ONE (22:50)
[2022-04-28] MEDS ORDERED: Aspirin 81 MG Tab.Chew PO ONE (01:44)
[2022-04-28] MEDS: Levothyroxine 100 MCG Tab PO SCH (06:35)
[2022-04-28 06:50] LABS: CARBON DIOXIDE,CO2 32.4 mmol/L (21.0-32.0); POTASSIUM,K 4.7 mmol/L (3.5-5.1)
[2022-04-28] MEDS: Calcium Carbonate/Vitamin D3 1500 MG-400 Units Tab PO SCH (08:19)
[2022-04-28] MEDS: Ferrous Sulfate 325 MG Tab PO SCH ×2 (08:20→20:25)
[2022-04-28] MEDS: Insulin Aspart 100 Units/ML 3 ML Pen SUBCUT SCH ×3 (08:21→17:01)
[2022-04-28] MEDS: Isosorbide Dinitrate 10 MG Tab PO SCH (08:24)
[2022-04-28] MEDS ORDERED: Aspirin 81 MG Tab.EC PO SCH (09:00)
[2022-04-28] MEDS ORDERED: Enoxaparin 40 MG/0.4 ML Syringe SUBCUT SCH (09:00)
[2022-04-28] MEDS ORDERED: Atenolol 25 MG Tab PO ONE (10:00)
[2022-04-28] MEDS ORDERED: Lactated Ringers 1,000 ML IV SCH (10:00)
[2022-04-28] MEDS: Aspirin 81 MG Tab.EC PO SCH (10:33)
[2022-04-28] MEDS ORDERED: Gadobenate Dimeglumine 529 MG/ML 20 ML SDV IVPUSH STA (12:52)
[2022-04-28] MEDS: Clopidogrel 75 MG Tab PO SCH (15:17)
[2022-04-28] MEDS: atorvaSTATin 40 MG Tab PO SCH (20:25)
[2022-04-28] MEDS ORDERED: Simvastatin 40 MG Tab PO SCH (21:00)
[2022-04-28] MEDS ORDERED: Atenolol 25 MG Tab PO SCH (21:00)
[2022-04-29] MEDS: Levothyroxine 100 MCG Tab PO SCH (07:04)
[2022-04-29 07:49] LABS: CARBON DIOXIDE,CO2 26.5 mmol/L (21.0-32.0); POTASSIUM,K 3.9 mmol/L (3.5-5.1)
[2022-04-29] MEDS: Insulin Aspart 100 Units/ML 3 ML Pen SUBCUT SCH ×3 (07:55→17:12)
[2022-04-29] MEDS: Calcium Carbonate/Vitamin D3 1500 MG-400 Units Tab PO SCH (08:36)
[2022-04-29] MEDS: Clopidogrel 75 MG Tab PO SCH (08:37)
[2022-04-29] MEDS: Ferrous Sulfate 325 MG Tab PO SCH ×2 (08:37→21:26)
[2022-04-29] MEDS: Isosorbide Dinitrate 10 MG Tab PO SCH (08:37)
[2022-04-29] MEDS: Aspirin 81 MG Tab.EC PO SCH (08:38)
[2022-04-29] MEDS: atorvaSTATin 40 MG Tab PO SCH (21:26)
[2022-04-30] MEDS ORDERED: Lactated Ringers 500 ML IV ONE (01:20)
[2022-04-30] MEDS ORDERED: Magnesium Sulfate/Water 2 GM in Premix Bag 1 BAG IV ONE (01:21)
[2022-04-30] MEDS: Levothyroxine 100 MCG Tab PO SCH (07:01)
[2022-04-30] MEDS: Insulin Aspart 100 Units/ML 3 ML Pen SUBCUT SCH ×3 (07:02→18:17)
[2022-04-30] MEDS: Clopidogrel 75 MG Tab PO SCH (09:24)
[2022-04-30] MEDS: Ferrous Sulfate 325 MG Tab PO SCH ×2 (09:24→20:03)
[2022-04-30] MEDS: Isosorbide Dinitrate 10 MG Tab PO SCH (09:24)
[2022-04-30] MEDS: Calcium Carbonate/Vitamin D3 1500 MG-400 Units Tab PO SCH (09:24)
[2022-04-30] MEDS: Aspirin 81 MG Tab.EC PO SCH (09:25)
[2022-04-30] MEDS: atorvaSTATin 40 MG Tab PO SCH (20:03)
[2022-05-01] MEDS: Insulin Aspart 100 Units/ML 3 ML Pen SUBCUT SCH ×3 (06:45→17:28)
[2022-05-01] MEDS: Levothyroxine 100 MCG Tab PO SCH (06:45)
[2022-05-01 07:15] LABS: CARBON DIOXIDE,CO2 28.3 mmol/L (21.0-32.0); POTASSIUM,K 3.8 mmol/L (3.5-5.1)
[2022-05-01] MEDS: Clopidogrel 75 MG Tab PO SCH (08:58)
[2022-05-01] MEDS: Ferrous Sulfate 325 MG Tab PO SCH ×2 (08:58→20:23)
[2022-05-01] MEDS: Calcium Carbonate/Vitamin D3 1500 MG-400 Units Tab PO SCH (08:59)
[2022-05-01] MEDS: Isosorbide Dinitrate 10 MG Tab PO SCH (08:59)
[2022-05-01] MEDS: Aspirin 81 MG Tab.EC PO SCH (08:59)
[2022-05-01] MEDS ORDERED: Polyethylene Glycol 3350 Powder 17 GM Packet PO ONE (12:35)
[2022-05-01] MEDS ORDERED: Gadobenate Dimeglumine 529 MG/ML 20 ML SDV IVPUSH STA (13:25)
[2022-05-01] MEDS: atorvaSTATin 40 MG Tab PO SCH (20:23)
[2022-05-02 07:18] LABS: CARBON DIOXIDE,CO2 30.2 mmol/L (21.0-32.0); POTASSIUM,K 4.3 mmol/L (3.5-5.1)
[2022-05-02] MEDS: Insulin Aspart 100 Units/ML 3 ML Pen SUBCUT SCH ×3 (07:57→17:21)
[2022-05-02] MEDS: Aspirin 81 MG Tab.EC PO SCH (08:19)
[2022-05-02] MEDS: Ferrous Sulfate 325 MG Tab PO SCH ×2 (08:20→21:38)
[2022-05-02] MEDS: Calcium Carbonate/Vitamin D3 1500 MG-400 Units Tab PO SCH (08:20)
[2022-05-02] MEDS: Isosorbide Dinitrate 10 MG Tab PO SCH (08:20)
[2022-05-02] MEDS: Levothyroxine 100 MCG Tab PO SCH (08:20)
[2022-05-02] MEDS: Clopidogrel 75 MG Tab PO SCH (08:20)
[2022-05-02] MEDS: atorvaSTATin 40 MG Tab PO SCH (21:38)
[2022-05-03 06:42] LABS: CARBON DIOXIDE,CO2 32.6 mmol/L (21.0-32.0); POTASSIUM,K 3.9 mmol/L (3.5-5.1)
[2022-05-03] MEDS: Levothyroxine 100 MCG Tab PO SCH (06:42)
[2022-05-03] MEDS: Insulin Aspart 100 Units/ML 3 ML Pen SUBCUT SCH (06:43)
[2022-05-03] MEDS: Ferrous Sulfate 325 MG Tab PO SCH (08:30)
[2022-05-03] MEDS: Calcium Carbonate/Vitamin D3 1500 MG-400 Units Tab PO SCH (08:30)
[2022-05-03] MEDS: Aspirin 81 MG Tab.EC PO SCH (08:31)
[2022-05-03] MEDS: Isosorbide Dinitrate 10 MG Tab PO SCH (08:31)
[2022-05-03] MEDS: Clopidogrel 75 MG Tab PO SCH (08:31)
== END 2022-05-03 11:15 | DRG 65 ==
LOC: MW.ED 10:20 → MW.MS 15:38 → OBSVTOIN 04-29 10:15 → MW.MS 04-29 14:32
PROVIDERS: ADMIT Student in an Organized Health Care Education/Training Program; ATTEND Student in an Organized Health Care Education/Training Program
DX: I63.9 Cerebral infarction, unspecified (principal); I63.40 Cerebral infarction due to embolism of unspecified cerebral artery; L03.113 Cellulitis of right upper limb; M86.9 Osteomyelitis, unspecified; L97.519 Non-pressure chronic ulcer of other part of right foot with unspecified severity; E78.00 Pure hypercholesterolemia, unspecified; I10 Essential (primary) hypertension; E66.9 Obesity, unspecified; B95.62 Methicillin resistant Staphylococcus aureus infection as the cause of diseases classified elsewhere; Z20.822 Contact with and (suspected) exposure to COVID-19; E89.0 Postprocedural hypothyroidism; R29.898 Other symptoms and signs involving the musculoskeletal system; R26.2 Difficulty in walking, not elsewhere classified; E11.621 Type 2 diabetes mellitus with foot ulcer; Z95.5 Presence of coronary angioplasty implant and graft; Z79.82 Long term (current) use of aspirin; Z79.84 Long term (current) use of oral hypoglycemic drugs; Z79.890 Hormone replacement therapy; Z79.899 Other long term (current) drug therapy; I25.2 Old myocardial infarction; Z68.20 Body mass index [BMI] 20.0-20.9, adult
CPT/HCPCS: 36415 ×3; 70553; 80053 ×3; 80061; 81001; 82607; 82947 ×4; 83036; 84439; 84443; 85025 ×3; 85652; 86592; 87635; 93306; 97162; 99285; A9270 ×18; A9577; J1815; J7120; 73720-26-RT; 73720-RT; 80202; 83735; 84100; 97110-GO; 97110-GP; 97165-GO; 99219; 99225; 99232; 99233; 99239; J3370; J3475; J7050; U0002

== ENCOUNTER 2022-05-05 18:38 | Emergency (ER) | payer OTHER, MEDICARE ==
[2022-05-05] MEDS ORDERED: Ondansetron 4 MG/2 ML SDV IVPUSH ONE (18:40)
[2022-05-05] MEDS ORDERED: Sodium Chloride 0.9% 1,000 ML IV ONE (18:41)
[2022-05-05 19:46] LABS: CARBON DIOXIDE,CO2 30.1 mmol/L (21.0-32.0); POTASSIUM,K 4.2 mmol/L (3.5-5.1)
[2022-05-05] MEDS ORDERED: Magnesium Citrate Solution 296 ML Bottle PO ONE (21:03)
== END 2022-05-05 21:26 | disposition home or self-care (01) ==
LOC: MW.ED 18:38
DX: K59.00 Constipation, unspecified (principal); I10 Essential (primary) hypertension; E78.00 Pure hypercholesterolemia, unspecified; E11.9 Type 2 diabetes mellitus without complications; E03.9 Hypothyroidism, unspecified; Z79.899 Other long term (current) drug therapy; Z79.4 Long term (current) use of insulin; Z79.82 Long term (current) use of aspirin
CPT/HCPCS: 36415; 74019; 80053; 83690; 85025; 96361; 96374; 99284; A9270; J2405; J7030

== ENCOUNTER 2022-05-23 22:18 | Emergency (ER) | payer OTHER, MEDICARE ==
[2022-05-23] MEDS ORDERED: Acetaminophen 325 MG Tab PO ONE (22:56)
[2022-05-23] MEDS ORDERED: Sodium Chloride 0.9% 2.5 ML Syringe FLUSH PRN (22:56)
[2022-05-23] MEDS ORDERED: Sodium Chloride 0.9% 10 ML Syringe FLUSH PRN (22:56)
[2022-05-23] MEDS ORDERED: Sodium Chloride 0.9% 1,000 ML IV ONE (22:56)
[2022-05-24 00:05] LABS: CARBON DIOXIDE,CO2 24.5 mmol/L (21.0-32.0); POTASSIUM,K 3.7 mmol/L (3.5-5.1)
== END 2022-05-24 00:52 | disposition home or self-care (01) ==
LOC: MW.ED 22:18
DX: R53.1 Weakness (principal); G89.29 Other chronic pain; M25.561 Pain in right knee; M25.562 Pain in left knee; F10.129 Alcohol abuse with intoxication, unspecified; I10 Essential (primary) hypertension; E11.9 Type 2 diabetes mellitus without complications; F17.210 Nicotine dependence, cigarettes, uncomplicated; Z79.899 Other long term (current) drug therapy; Z79.82 Long term (current) use of aspirin; Z79.84 Long term (current) use of oral hypoglycemic drugs; Z79.4 Long term (current) use of insulin
CPT/HCPCS: 36415; 73110; 80053; 80307; 85025; 96360; 99285; A9270; J3490; J7030; 99284

== ENCOUNTER 2022-09-07 02:25 | Emergency (ER) | payer OTHER, MEDICARE, MEDICAID ==
[2022-09-07 03:19] LABS: CARBON DIOXIDE,CO2 31.3 mmol/L (21.0-32.0); POTASSIUM,K 3.6 mmol/L (3.5-5.1)
[2022-09-07 03:29] LABS: CORONAVIRUS COVID-19 NAA NEGATIVE (NEGATIVE); INFLUENZA A NAA NEGATIVE (NEGATIVE); INFLUENZA B NAA NEGATIVE (NEGATIVE)
== END 2022-09-07 07:03 | disposition home or self-care (01) ==
LOC: MW.ED 02:25
DX: R53.1 Weakness (principal); I10 Essential (primary) hypertension; E78.00 Pure hypercholesterolemia, unspecified; I25.2 Old myocardial infarction; E11.9 Type 2 diabetes mellitus without complications; E03.9 Hypothyroidism, unspecified; Z79.82 Long term (current) use of aspirin; Z79.02 Long term (current) use of antithrombotics/antiplatelets; Z79.4 Long term (current) use of insulin; Z79.899 Other long term (current) drug therapy; Z20.822 Contact with and (suspected) exposure to COVID-19
CPT/HCPCS: 0240U; 36415; 70450; 70496; 70498; 71045; 80053; 80307; 82009; 82803; 82947; 83605; 83735; 84443; 84484; 85025; 85610; 99285

== ENCOUNTER 2022-12-12 20:26 | Emergency (ER) | payer OTHER, MEDICARE, MEDICAID | END 2022-12-12 21:45 | disposition home or self-care (01) | LOC: MW.ED 20:26 | DX: F32.A Depression, unspecified (principal); I25.10 Atherosclerotic heart disease of native coronary artery without angina pectoris; I10 Essential (primary) hypertension; E78.00 Pure hypercholesterolemia, unspecified; I25.2 Old myocardial infarction; E11.9 Type 2 diabetes mellitus without complications; E03.9 Hypothyroidism, unspecified; Z72.0 Tobacco use; Z79.4 Long term (current) use of insulin; Z79.02 Long term (current) use of antithrombotics/antiplatelets; Z79.899 Other long term (current) drug therapy; Z79.82 Long term (current) use of aspirin | CPT/HCPCS: 99283 ==

== ENCOUNTER 2022-12-14 19:49 | Emergency (ER) | payer OTHER, MEDICARE, MEDICAID ==
[2022-12-14] MEDS ORDERED: Acetaminophen 500 MG Tab PO ONE (19:58)
[2022-12-14 20:58] LABS: ACETAMINOPHEN < 2.0 ug/mL; BLOOD UREA NITROGEN,BUN 12 mg/dL (7.0-18.0); CARBON DIOXIDE,CO2 31.2 mmol/L (21.0-32.0); CHLORIDE,CL 101 mmol/L (98-107); GLUCOSE RANDOM 150 mg/dL (74-106); SODIUM,NA 139 mmol/L (136-148)
[2022-12-14 21:00] LABS: ESTIMATED GFR 106 mL/min (>60)
== END 2022-12-15 00:03 | disposition home or self-care (01) ==
LOC: MW.ED 19:49
DX: F32.A Depression, unspecified (principal); I25.10 Atherosclerotic heart disease of native coronary artery without angina pectoris; E78.00 Pure hypercholesterolemia, unspecified; I10 Essential (primary) hypertension; I25.2 Old myocardial infarction; E11.9 Type 2 diabetes mellitus without complications; E03.9 Hypothyroidism, unspecified; Z86.73 Personal history of transient ischemic attack (TIA), and cerebral infarction without residual deficits; Z79.899 Other long term (current) drug therapy; Z79.02 Long term (current) use of antithrombotics/antiplatelets; Z79.4 Long term (current) use of insulin; Z79.82 Long term (current) use of aspirin; Z20.822 Contact with and (suspected) exposure to COVID-19
CPT/HCPCS: 36415; 80053; 80143; 80179; 80305; 80307; 85025; 87635; 99284; A9270; 99283; U0002

== ENCOUNTER 2022-12-22 13:04 | Emergency (ER) | payer OTHER, MEDICARE, MEDICAID ==
[2022-12-22 14:16] LABS: ACETAMINOPHEN <2.0 ug/mL; BLOOD UREA NITROGEN,BUN 19 mg/dL (7.0-18.0); CARBON DIOXIDE,CO2 29.7 mmol/L (21.0-32.0); CHLORIDE,CL 104 mmol/L (98-107); GLUCOSE RANDOM 153 mg/dL (74-106); POTASSIUM,K 4.2 mmol/L (3.5-5.1); SODIUM,NA 141 mmol/L (136-148)
[2022-12-22 14:18] LABS: ESTIMATED GFR 106 mL/min (>60)
== END 2022-12-22 14:56 | disposition home or self-care (01) ==
LOC: MW.ED 13:04
DX: F32.A Depression, unspecified (principal); R94.6 Abnormal results of thyroid function studies; I25.10 Atherosclerotic heart disease of native coronary artery without angina pectoris; E78.00 Pure hypercholesterolemia, unspecified; I10 Essential (primary) hypertension; E11.9 Type 2 diabetes mellitus without complications; E03.9 Hypothyroidism, unspecified; I25.2 Old myocardial infarction; Z79.4 Long term (current) use of insulin; Z86.73 Personal history of transient ischemic attack (TIA), and cerebral infarction without residual deficits; Z79.899 Other long term (current) drug therapy
CPT/HCPCS: 36415; 80053; 80143; 80179; 80305-QW; 80307; 81001; 84439; 84443; 84481; 85025; 87086; 99284

== ENCOUNTER 2022-12-22 22:18 | Observation (INO) | payer OTHER, MEDICARE, MEDICAID ==
[2022-12-22] MEDS ORDERED: Acetaminophen 325 MG Tab PO ONE (22:19)
[2022-12-22] MEDS ORDERED: Sodium Chloride 0.9% 10 ML Syringe FLUSH PRN (22:22)
[2022-12-22] MEDS ORDERED: Sodium Chloride 0.9% 2.5 ML Syringe FLUSH PRN (22:22)
[2022-12-23] MEDS ORDERED: LORazepam 2 MG/ML SDV IVPUSH PRN (00:13)
[2022-12-23] MEDS: Thiamine 100 MG Tab PO SCH ×2 (00:40→09:11)
[2022-12-23] MEDS: Folic Acid 1 MG Tab PO SCH ×2 (00:40→09:11)
[2022-12-23 00:52] LABS: BLOOD UREA NITROGEN,BUN 18 mg/dL (7.0-18.0); CARBON DIOXIDE,CO2 25.7 mmol/L (21.0-32.0); CHLORIDE,CL 104 mmol/L (98-107); ESTIMATED GFR 106 mL/min (>60); GLUCOSE RANDOM 181 mg/dL (74-106); POTASSIUM,K 3.9 mmol/L (3.5-5.1); SODIUM,NA 141 mmol/L (136-148)
[2022-12-23] MEDS ORDERED: Glucagon,Human Recombinant 1 MG Vial IM PRN (00:58)
[2022-12-23] MEDS ORDERED: 50% Dextrose in Water 50 ML Syringe IVPUSH PRN (00:58)
[2022-12-23] MEDS ORDERED: Insulin Glargine,Hum.Rec.Anlog 100 UNIT/ML 3 ML Pen SUBCUT ONE (01:15)
[2022-12-23] MEDS: Insulin Aspart 100 Units/ML 3 ML Pen SUBCUT SCH ×3 (07:42→17:07)
[2022-12-23] MEDS: Acetaminophen 325 MG Tab PO PRN ×3 (09:14→21:30)
[2022-12-23] MEDS: Calcium Carbonate 500 MG Tab.Chew PO PRN (15:19)
[2022-12-23] MEDS ORDERED: Insulin Glargine,Hum.Rec.Anlog 100 UNIT/ML 3 ML Pen SUBCUT SCH (21:00)
[2022-12-23] MEDS ORDERED: atorvaSTATin 40 MG Tab PO SCH (21:00)
[2022-12-23] MEDS ORDERED: fluvoxaMINE 50 MG Tab PO SCH (21:00)
[2022-12-24] MEDS: Acetaminophen 325 MG Tab PO PRN (05:46)
[2022-12-24] MEDS ORDERED: Levothyroxine 100 MCG Tab PO SCH (07:30)
[2022-12-24] MEDS: Insulin Aspart 100 Units/ML 3 ML Pen SUBCUT SCH ×2 (07:38→11:55)
[2022-12-24] MEDS: Thiamine 100 MG Tab PO SCH (08:37)
[2022-12-24] MEDS: Folic Acid 1 MG Tab PO SCH (08:40)
[2022-12-24] MEDS ORDERED: Cholecalciferol (Vitamin D3) 25 MCG Tab PO SCH (09:00)
[2022-12-24] MEDS ORDERED: Prenatal Multivitamin with Calcium/Folic Acid/Iron Tab PO SCH (09:00)
[2022-12-24] MEDS ORDERED: Topiramate 50 MG Tab PO SCH (09:00)
[2022-12-24] MEDS ORDERED: Atenolol 25 MG Tab PO SCH (09:00)
[2022-12-24] MEDS ORDERED: Isosorbide Dinitrate 10 MG Tab PO SCH (09:00)
[2022-12-24] MEDS ORDERED: Clopidogrel 75 MG Tab PO SCH (09:00)
[2022-12-24] MEDS ORDERED: Alum Hydro/Mag Hydro/Simeth XS 15 ML, Lidocaine 2% 5 ML PO ONE ×2 (10:36)
[2022-12-24] MEDS: Calcium Carbonate 500 MG Tab.Chew PO PRN (10:38)
== END 2022-12-24 14:30 | disposition home or self-care (01) ==
LOC: MW.ED 22:18 → MW.MS 23:49
PROVIDERS: ADMIT Internal Medicine; ATTEND Internal Medicine
DX: F32.A Depression, unspecified (principal); S98.139A Complete traumatic amputation of one unspecified lesser toe, initial encounter; E11.65 Type 2 diabetes mellitus with hyperglycemia; E11.51 Type 2 diabetes mellitus with diabetic peripheral angiopathy without gangrene; I44.7 Left bundle-branch block, unspecified; E03.9 Hypothyroidism, unspecified; I25.10 Atherosclerotic heart disease of native coronary artery without angina pectoris; E78.00 Pure hypercholesterolemia, unspecified; I10 Essential (primary) hypertension; I25.2 Old myocardial infarction; F10.10 Alcohol abuse, uncomplicated; R26.2 Difficulty in walking, not elsewhere classified; I70.8 Atherosclerosis of other arteries; Z78.9 Other specified health status; Z86.73 Personal history of transient ischemic attack (TIA), and cerebral infarction without residual deficits; Z79.4 Long term (current) use of insulin; Z79.890 Hormone replacement therapy; Z79.899 Other long term (current) drug therapy; Z91.199 Patient's noncompliance with other medical treatment and regimen due to unspecified reason; Z95.818 Presence of other cardiac implants and grafts
CPT/HCPCS: 36415; 80053; 80307; 82947; 84484; 85025; 93005; 97110; 97161; 97530; 99285; A9270; G0378; J1815; J3490; 99221; 99238

== ENCOUNTER 2023-01-03 01:49 | Emergency (ER) | payer OTHER, MEDICARE, MEDICAID ==
[2023-01-03] MEDS: Ibuprofen 400 MG Tab PO ONE (02:28)
[2023-01-03] MEDS: oxyCODONE 5 MG Tab PO ONE (02:31)
[2023-01-03] MEDS: Ibuprofen 800 MG Tab PO ONE (02:31)
[2023-01-03] MEDS: Acetaminophen 325 MG Tab PO ONE (02:32)
[2023-01-03 03:01] LABS: BLOOD UREA NITROGEN,BUN 30 mg/dL (7.0-18.0); CARBON DIOXIDE,CO2 25.1 mmol/L (21.0-32.0); CHLORIDE,CL 106 mmol/L (98-107); GLUCOSE RANDOM 133 mg/dL (74-106); POTASSIUM,K 3.9 mmol/L (3.5-5.1); SODIUM,NA 142 mmol/L (136-148)
[2023-01-03 03:02] LABS: ESTIMATED GFR 106 mL/min (>60)
== END 2023-01-03 06:00 | disposition home or self-care (01) ==
LOC: MW.ED 01:49
DX: E11.621 Type 2 diabetes mellitus with foot ulcer (principal); L97.519 Non-pressure chronic ulcer of other part of right foot with unspecified severity; I25.10 Atherosclerotic heart disease of native coronary artery without angina pectoris; E78.00 Pure hypercholesterolemia, unspecified; I25.2 Old myocardial infarction; I10 Essential (primary) hypertension; E11.9 Type 2 diabetes mellitus without complications; E03.9 Hypothyroidism, unspecified; Z79.4 Long term (current) use of insulin; Z79.899 Other long term (current) drug therapy; Z95.5 Presence of coronary angioplasty implant and graft
CPT/HCPCS: 36415; 73630-26-RT; 73630-RT; 80053; 85025; 85610; 85652; 85730; 86140; 99284; A9270-GY

== ENCOUNTER 2023-01-09 05:08 | Emergency (ER) | payer OTHER, MEDICAID ==
[2023-01-09] MEDS ORDERED: traMADol 50 MG Tab PO ONE ×2 (06:17→06:35)
[2023-01-09] MEDS ORDERED: Acetaminophen 325 MG Tab PO ONE (06:35)
== END 2023-01-09 07:17 | disposition home or self-care (01) ==
LOC: MW.ED 05:08
DX: G89.29 Other chronic pain (principal); M79.674 Pain in right toe(s); F10.99 Alcohol use, unspecified with unspecified alcohol-induced disorder; I25.10 Atherosclerotic heart disease of native coronary artery without angina pectoris; E78.00 Pure hypercholesterolemia, unspecified; I10 Essential (primary) hypertension; I25.2 Old myocardial infarction; E11.9 Type 2 diabetes mellitus without complications; E03.9 Hypothyroidism, unspecified; Z72.0 Tobacco use; Z79.4 Long term (current) use of insulin; Z79.02 Long term (current) use of antithrombotics/antiplatelets; Z79.899 Other long term (current) drug therapy
CPT/HCPCS: 99283; A9270

== ENCOUNTER 2023-01-16 21:13 | Emergency (ER) | payer OTHER, MEDICARE, MEDICAID ==
[2023-01-16 22:19] LABS: CARBON DIOXIDE,CO2 30.6 mmol/L (21.0-32.0); POTASSIUM,K 4.2 mmol/L (3.5-5.1)
== END 2023-01-17 08:23 | disposition home or self-care (01) ==
LOC: MW.ED 21:13
DX: R19.7 Diarrhea, unspecified (principal); I25.10 Atherosclerotic heart disease of native coronary artery without angina pectoris; I10 Essential (primary) hypertension; E78.00 Pure hypercholesterolemia, unspecified; I25.2 Old myocardial infarction; E11.9 Type 2 diabetes mellitus without complications; E03.9 Hypothyroidism, unspecified; Z86.73 Personal history of transient ischemic attack (TIA), and cerebral infarction without residual deficits; Z79.4 Long term (current) use of insulin; Z79.02 Long term (current) use of antithrombotics/antiplatelets; Z79.899 Other long term (current) drug therapy
CPT/HCPCS: 36415; 80053; 83605; 85025; 99284

== ENCOUNTER 2023-01-22 11:45 | Emergency (ER) | payer OTHER, MEDICAID | END 2023-01-22 14:04 | disposition home or self-care (01) | LOC: MW.ED 11:45 | DX: L03.115 Cellulitis of right lower limb (principal); E11.51 Type 2 diabetes mellitus with diabetic peripheral angiopathy without gangrene; I25.10 Atherosclerotic heart disease of native coronary artery without angina pectoris; E78.00 Pure hypercholesterolemia, unspecified; I10 Essential (primary) hypertension; I25.2 Old myocardial infarction; Z86.73 Personal history of transient ischemic attack (TIA), and cerebral infarction without residual deficits; Z79.4 Long term (current) use of insulin; Z79.899 Other long term (current) drug therapy; Z87.891 Personal history of nicotine dependence | CPT/HCPCS: 99283 ==

== ENCOUNTER 2023-01-29 12:44 | Inpatient (IN) | payer OTHER, MEDICARE, MEDICAID ==
[2023-01-29] MEDS ORDERED: Piperacillin/Tazobactam 3.375 GM in Sodium Chloride 0.9% 100 ML IV ONE (15:26)
[2023-01-29 15:28] LABS: INR 1.09 (0.86-1.11)
[2023-01-29 15:56] LABS: BASOPHILS PERCENT AUTO 0.2 % (0.0-1.5); EOSINOPHILS ABSOLUTE AUTO 0.2 K/uL (0.0-0.7); EOSINOPHILS PERCENT AUTO 1.9 % (0.0-7.0); HEMATOCRIT 47.8 % (38.0-50.0); HEMOGLOBIN 16.8 g/dL (13.0-17.0); LYMPHOCYTES ABSOLUTE AUTO 0.8 K/uL (0.6-2.4); LYMPHOCYTES PERCENT AUTO 8.6 % (16.0-40.0); MEAN CORPUSCULAR HGB CONC 35.1 g/dL (31.0-37.0); MEAN CORPUSCULAR VOLUME 82.4 fL (80.0-98.0); MONOCYTES ABSOLUTE AUTO 0.7 K/uL (0.0-0.8); MONOCYTES PERCENT AUTO 7.6 % (0.0-15.0); NEUTROPHILS ABSOLUTE AUTO 7.8 K/uL (1.4-5.7); NEUTROPHILS PERCENT AUTO 81.7 % (48.0-80.0); PLATELET COUNT,PLT 278 K/uL (150-400); WHITE BLOOD CELL COUNT,WBC 9.52 K/uL (4.0-11.0)
[2023-01-29] MEDS ORDERED: VANCOmycin 1.25 GM/250 ML 1.25 GM in Premix Bag 1 BAG IV ONE (16:00)
[2023-01-29 16:01] LABS: A/G RATIO 0.8 (0.9-1.6); ALBUMIN 3.1 g/dL (3.4-5.0); BILIRUBIN TOTAL 0.4 mg/dL (0.2-1.0); CALCIUM 9.1 mg/dL (8.5-10.1); CARBON DIOXIDE,CO2 27.9 mmol/L (21.0-32.0); CREATININE 1.2 mg/dL (0.8-1.3); EST CRCL DRUG DOSING (CG) 58.3 mL/min; PROTEIN TOTAL,TP 6.8 g/dL (6.4-8.2)
[2023-01-29 16:18] LABS: LACTIC ACID 1.6 mmol/L (0.4-2.0)
[2023-01-29] MEDS ORDERED: Glucagon,Human Recombinant 1 MG Vial IM PRN (16:28)
[2023-01-29] MEDS ORDERED: 50% Dextrose in Water 50 ML Syringe IVPUSH PRN (16:28)
[2023-01-29] MEDS ORDERED: Clindamycin Phosphate in D5W 600 MG in Premix Bag 1 BAG IV SCH ×4 (17:00→17:15)
[2023-01-29] MEDS ORDERED: traMADol 50 MG Tab PO PRN (17:00)
[2023-01-29] MEDS ORDERED: Morphine 2 MG/ML SYRINGE IVPUSH PRN (17:00)
[2023-01-29] MEDS: Insulin Aspart 100 Units/ML 3 ML Pen SUBCUT SCH (18:22)
[2023-01-29] MEDS: Acetaminophen 325 MG Tab PO PRN (19:29)
[2023-01-29] MEDS: Enoxaparin 40 MG/0.4 ML Syringe SUBCUT SCH (19:31)
[2023-01-29] MEDS: atorvaSTATin 40 MG Tab PO SCH (20:05)
[2023-01-29] MEDS: Clindamycin Phosphate in D5W 600 MG in Premix Bag 1 BAG IV SCH ×2 (20:05)
[2023-01-29] MEDS: metFORMIN 500 MG Tab PO SCH (20:05)
[2023-01-29] MEDS: Piperacillin/Tazobactam 3.375 GM in Sodium Chloride 0.9% 100 ML IV SCH (22:30)
[2023-01-30] MEDS: Clindamycin Phosphate in D5W 600 MG in Premix Bag 1 BAG IV SCH ×6 (04:18→20:13)
[2023-01-30 06:06] LABS: BASOPHILS PERCENT AUTO 0.4 % (0.0-1.5); EOSINOPHILS ABSOLUTE AUTO 0.3 K/uL (0.0-0.7); EOSINOPHILS PERCENT AUTO 2.9 % (0.0-7.0); HEMATOCRIT 44.3 % (38.0-50.0); HEMOGLOBIN 15.4 g/dL (13.0-17.0); LYMPHOCYTES ABSOLUTE AUTO 1.5 K/uL (0.6-2.4); LYMPHOCYTES PERCENT AUTO 16.1 % (16.0-40.0); MEAN CORPUSCULAR HEMOGLOBIN 28.5 pg (27.0-32.0); MEAN CORPUSCULAR HGB CONC 34.8 g/dL (31.0-37.0); MEAN CORPUSCULAR VOLUME 81.9 fL (80.0-98.0); MONOCYTES ABSOLUTE AUTO 0.9 K/uL (0.0-0.8); MONOCYTES PERCENT AUTO 10.2 % (0.0-15.0); NEUTROPHILS ABSOLUTE AUTO 6.4 K/uL (1.4-5.7); NEUTROPHILS PERCENT AUTO 70.4 % (48.0-80.0); NRBC ABSOLUTE 0 K/uL; PLATELET COUNT,PLT 272 K/uL (150-400); RED BLOOD CELL COUNT 5.41 M/uL (4.50-5.90); WHITE BLOOD CELL COUNT,WBC 9.06 K/uL (4.0-11.0)
[2023-01-30] MEDS: Piperacillin/Tazobactam 3.375 GM in Sodium Chloride 0.9% 100 ML IV SCH ×3 (06:24→22:31)
[2023-01-30] MEDS: Levothyroxine 100 MCG Tab PO SCH ×2 (06:24→07:08)
[2023-01-30 06:39] LABS: A/G RATIO 0.8 (0.9-1.6); ALBUMIN 2.6 g/dL (3.4-5.0); BILIRUBIN TOTAL 0.4 mg/dL (0.2-1.0); CALCIUM 8.3 mg/dL (8.5-10.1); EST CRCL DRUG DOSING (CG) 74.01 mL/min; POTASSIUM,K 4.3 mmol/L (3.5-5.1); PROTEIN TOTAL,TP 5.7 g/dL (6.4-8.2)
[2023-01-30] MEDS: Insulin Aspart 100 Units/ML 3 ML Pen SUBCUT SCH ×3 (07:09→18:07)
[2023-01-30] MEDS: Acetaminophen 325 MG Tab PO PRN (08:39)
[2023-01-30] MEDS: Cholecalciferol (Vitamin D3) 25 MCG Tab PO SCH (08:40)
[2023-01-30] MEDS: metFORMIN 500 MG Tab PO SCH ×2 (08:40→17:18)
[2023-01-30] MEDS: Atenolol 50 MG Tab PO SCH (08:43)
[2023-01-30] MEDS ORDERED: LORazepam 2 MG/ML SDV IVPUSH PRN (09:30)
[2023-01-30] MEDS: Nicotine 14 MG/24 Hr Patch TRDERM SCH (11:56)
[2023-01-30] MEDS: fluvoxaMINE 50 MG Tab PO SCH (11:57)
[2023-01-30] MEDS: Clopidogrel 75 MG Tab PO SCH (11:58)
[2023-01-30] MEDS: Sertraline 50 MG Tab PO SCH (11:58)
[2023-01-30] MEDS: Isosorbide Dinitrate 10 MG Tab PO SCH (13:15)
[2023-01-30] MEDS: Enoxaparin 40 MG/0.4 ML Syringe SUBCUT SCH (17:19)
[2023-01-30] MEDS ORDERED: VANCOmycin 1.5 GM/300 ML 1.5 GM in Premix Bag 1 BAG IV SCH (17:30)
[2023-01-30] MEDS: atorvaSTATin 40 MG Tab PO SCH (20:13)
[2023-01-31] MEDS: Clindamycin Phosphate in D5W 600 MG in Premix Bag 1 BAG IV SCH ×6 (04:44→21:21)
[2023-01-31] MEDS: Levothyroxine 100 MCG Tab PO SCH ×2 (06:10→06:29)
[2023-01-31] MEDS: Piperacillin/Tazobactam 3.375 GM in Sodium Chloride 0.9% 100 ML IV SCH ×3 (06:10→22:37)
[2023-01-31 06:35] LABS: BASOPHILS PERCENT AUTO 0.4 % (0.0-1.5); EOSINOPHILS ABSOLUTE AUTO 0.3 K/uL (0.0-0.7); EOSINOPHILS PERCENT AUTO 3.4 % (0.0-7.0); HEMATOCRIT 43.2 % (38.0-50.0); LYMPHOCYTES ABSOLUTE AUTO 1.6 K/uL (0.6-2.4); LYMPHOCYTES PERCENT AUTO 20.8 % (16.0-40.0); MEAN CORPUSCULAR HGB CONC 34.7 g/dL (31.0-37.0); MEAN CORPUSCULAR VOLUME 83.4 fL (80.0-98.0); MONOCYTES ABSOLUTE AUTO 0.6 K/uL (0.0-0.8); MONOCYTES PERCENT AUTO 7.6 % (0.0-15.0); NEUTROPHILS ABSOLUTE AUTO 5.2 K/uL (1.4-5.7); NEUTROPHILS PERCENT AUTO 67.8 % (48.0-80.0); NRBC ABSOLUTE 0 K/uL; PLATELET COUNT,PLT 238 K/uL (150-400); RED BLOOD CELL COUNT 5.18 M/uL (4.50-5.90); WHITE BLOOD CELL COUNT,WBC 7.63 K/uL (4.0-11.0)
[2023-01-31] MEDS: Insulin Aspart 100 Units/ML 3 ML Pen SUBCUT SCH ×3 (07:03→16:53)
[2023-01-31 07:04] LABS: A/G RATIO 0.9 (0.9-1.6); ALBUMIN 2.6 g/dL (3.4-5.0); BILIRUBIN TOTAL 0.3 mg/dL (0.2-1.0); CALCIUM 8.2 mg/dL (8.5-10.1); CARBON DIOXIDE,CO2 23.3 mmol/L (21.0-32.0); CREATININE 1.2 mg/dL (0.8-1.3); EST CRCL DRUG DOSING (CG) 61.68 mL/min; POTASSIUM,K 4.4 mmol/L (3.5-5.1); PROTEIN TOTAL,TP 5.6 g/dL (6.4-8.2)
[2023-01-31 07:06] LABS: HEMOGLOBIN A1C 6.7 %
[2023-01-31] MEDS: Cholecalciferol (Vitamin D3) 25 MCG Tab PO SCH (08:40)
[2023-01-31] MEDS: fluvoxaMINE 50 MG Tab PO SCH (08:40)
[2023-01-31] MEDS: metFORMIN 500 MG Tab PO SCH ×2 (08:40→16:52)
[2023-01-31] MEDS: Nicotine 14 MG/24 Hr Patch TRDERM SCH (08:41)
[2023-01-31] MEDS: Sertraline 50 MG Tab PO SCH (08:42)
[2023-01-31] MEDS: Atenolol 50 MG Tab PO SCH (08:42)
[2023-01-31] MEDS: Clopidogrel 75 MG Tab PO SCH (08:42)
[2023-01-31] MEDS: Isosorbide Dinitrate 10 MG Tab PO SCH (08:42)
[2023-01-31] MEDS: Enoxaparin 40 MG/0.4 ML Syringe SUBCUT SCH (18:02)
[2023-01-31] MEDS: atorvaSTATin 40 MG Tab PO SCH (21:28)
[2023-02-01 06:15] LABS: BASOPHILS ABSOLUTE AUTO 0.1 K/uL (0.0-0.1); BASOPHILS PERCENT AUTO 0.6 % (0.0-1.5); EOSINOPHILS ABSOLUTE AUTO 0.3 K/uL (0.0-0.7); EOSINOPHILS PERCENT AUTO 3.4 % (0.0-7.0); HEMATOCRIT 46.3 % (38.0-50.0); HEMOGLOBIN 15.5 g/dL (13.0-17.0); LYMPHOCYTES ABSOLUTE AUTO 2.1 K/uL (0.6-2.4); MEAN CORPUSCULAR HEMOGLOBIN 28.2 pg (27.0-32.0); MEAN CORPUSCULAR HGB CONC 33.5 g/dL (31.0-37.0); MEAN CORPUSCULAR VOLUME 84.3 fL (80.0-98.0); MONOCYTES ABSOLUTE AUTO 0.6 K/uL (0.0-0.8); MONOCYTES PERCENT AUTO 6.4 % (0.0-15.0); NEUTROPHILS ABSOLUTE AUTO 6.9 K/uL (1.4-5.7); NEUTROPHILS PERCENT AUTO 68.6 % (48.0-80.0); NRBC ABSOLUTE 0 K/uL; PLATELET COUNT,PLT 290 K/uL (150-400); RED BLOOD CELL COUNT 5.49 M/uL (4.50-5.90); WHITE BLOOD CELL COUNT,WBC 10.02 K/uL (4.0-11.0)
[2023-02-01 06:25] LABS: CALCIUM 8.7 mg/dL (8.5-10.1); CARBON DIOXIDE,CO2 24.3 mmol/L (21.0-32.0); CREATININE 1.1 mg/dL (0.8-1.3); EST CRCL DRUG DOSING (CG) 67.29 mL/min; POTASSIUM,K 4.6 mmol/L (3.5-5.1)
[2023-02-01] MEDS: Insulin Aspart 100 Units/ML 3 ML Pen SUBCUT SCH ×3 (07:00→17:08)
[2023-02-01] MEDS: Clindamycin Phosphate in D5W 600 MG in Premix Bag 1 BAG IV SCH ×6 (07:06→20:26)
[2023-02-01] MEDS: Levothyroxine 100 MCG Tab PO SCH (07:16)
[2023-02-01] MEDS: Nicotine 14 MG/24 Hr Patch TRDERM SCH (08:08)
[2023-02-01] MEDS: metFORMIN 500 MG Tab PO SCH ×2 (08:08→17:08)
[2023-02-01] MEDS: Atenolol 50 MG Tab PO SCH (08:09)
[2023-02-01] MEDS: Sertraline 50 MG Tab PO SCH (08:10)
[2023-02-01] MEDS: Cholecalciferol (Vitamin D3) 25 MCG Tab PO SCH (08:10)
[2023-02-01] MEDS: fluvoxaMINE 50 MG Tab PO SCH (08:10)
[2023-02-01] MEDS: Isosorbide Dinitrate 10 MG Tab PO SCH (08:10)
[2023-02-01] MEDS: Clopidogrel 75 MG Tab PO SCH (08:11)
[2023-02-01] MEDS: Piperacillin/Tazobactam 3.375 GM in Sodium Chloride 0.9% 100 ML IV SCH ×3 (08:11→23:36)
[2023-02-01] MEDS ORDERED: Gadobenate Dimeglumine 529 MG/ML 20 ML SDV IVPUSH ONE (13:57)
[2023-02-01] MEDS: atorvaSTATin 40 MG Tab PO SCH (20:26)
[2023-02-02] MEDS: Clindamycin Phosphate in D5W 600 MG in Premix Bag 1 BAG IV SCH ×6 (03:56→20:33)
[2023-02-02 06:08] LABS: BASOPHILS PERCENT AUTO 0.3 % (0.0-1.5); EOSINOPHILS ABSOLUTE AUTO 0.3 K/uL (0.0-0.7); EOSINOPHILS PERCENT AUTO 3.2 % (0.0-7.0); HEMATOCRIT 38.8 % (38.0-50.0); HEMOGLOBIN 13.2 g/dL (13.0-17.0); LYMPHOCYTES ABSOLUTE AUTO 1.2 K/uL (0.6-2.4); LYMPHOCYTES PERCENT AUTO 12.9 % (16.0-40.0); MEAN CORPUSCULAR HEMOGLOBIN 28.5 pg (27.0-32.0); MEAN CORPUSCULAR VOLUME 83.8 fL (80.0-98.0); MONOCYTES PERCENT AUTO 10.3 % (0.0-15.0); NEUTROPHILS PERCENT AUTO 73.3 % (48.0-80.0); NRBC ABSOLUTE 0 K/uL; PLATELET COUNT,PLT 258 K/uL (150-400); RED BLOOD CELL COUNT 4.63 M/uL (4.50-5.90); WHITE BLOOD CELL COUNT,WBC 9.51 K/uL (4.0-11.0)
[2023-02-02 06:24] LABS: CALCIUM 8.4 mg/dL (8.5-10.1); EST CRCL DRUG DOSING (CG) 74.01 mL/min; POTASSIUM,K 3.7 mmol/L (3.5-5.1)
[2023-02-02] MEDS: Levothyroxine 100 MCG Tab PO SCH (06:48)
[2023-02-02] MEDS: Piperacillin/Tazobactam 3.375 GM in Sodium Chloride 0.9% 100 ML IV SCH ×3 (06:49→23:08)
[2023-02-02] MEDS ORDERED: Ondansetron 4 MG/2 ML SDV IVPUSH PRN ×2 (07:27→08:14)
[2023-02-02] MEDS ORDERED: Metoclopramide 10 MG/2 ML SDV IVPUSH PRN ×2 (07:27→08:14)
[2023-02-02] MEDS ORDERED: Naloxone 0.4 MG/ML SDV IVPUSH PRN ×2 (07:27→08:14)
[2023-02-02] MEDS ORDERED: droPERidol 5 MG/2 ML SDV IVPUSH PRN ×2 (07:27→08:14)
[2023-02-02] MEDS ORDERED: fentaNYL 50 MCG/ML SDV IVPUSH PRN ×2 (07:27→08:14)
[2023-02-02] MEDS ORDERED: HYDROmorphone 1 MG/ML Syringe IVPUSH PRN ×2 (07:27→08:14)
[2023-02-02] MEDS ORDERED: Morphine 2 MG/ML SYRINGE IVPUSH PRN ×2 (07:27→08:14)
[2023-02-02] MEDS ORDERED: Albuterol 0.083% 2.5 MG/3 ML Neb Soln NEB PRN ×2 (07:27→08:14)
[2023-02-02] MEDS: Insulin Aspart 100 Units/ML 3 ML Pen SUBCUT SCH ×3 (07:29→17:20)
[2023-02-02] MEDS ORDERED: Bupivacaine 0.5% 30 ML SDV ONE (07:33)
[2023-02-02] MEDS ORDERED: Lidocaine 2% 5 ML SDV ONE (07:34)
[2023-02-02] MEDS ORDERED: propofoL 50 ML ONE (07:35)
[2023-02-02] MEDS ORDERED: fentaNYL 100 MCG/2 ML SDV ONE (07:35)
[2023-02-02] MEDS ORDERED: Ropivacaine 0.5% 5 MG/ML 30 ML SDV ONE (07:42)
[2023-02-02] MEDS ORDERED: ePHEDrine 50 MG/ML SDV ONE ×2 (08:18→09:32)
[2023-02-02] MEDS ORDERED: Phenylephrine HCl 0.5 MG/5 ML AMP ONE ×2 (08:45→09:05)
[2023-02-02] MEDS ORDERED: Magnesium Sulfate (4.06 MEQ/ML) 5 GM/10 ML SDV ONE (08:47)
[2023-02-02] MEDS: metFORMIN 500 MG Tab PO SCH ×2 (10:23→17:56)
[2023-02-02] MEDS: Nicotine 14 MG/24 Hr Patch TRDERM SCH (10:24)
[2023-02-02] MEDS: Cholecalciferol (Vitamin D3) 25 MCG Tab PO SCH (10:24)
[2023-02-02] MEDS: Isosorbide Dinitrate 10 MG Tab PO SCH (10:24)
[2023-02-02] MEDS: Sertraline 50 MG Tab PO SCH (10:24)
[2023-02-02] MEDS: fluvoxaMINE 50 MG Tab PO SCH (10:24)
[2023-02-02] MEDS: Atenolol 50 MG Tab PO SCH (10:24)
[2023-02-02] MEDS: Clopidogrel 75 MG Tab PO SCH (10:24)
[2023-02-02] MEDS: atorvaSTATin 40 MG Tab PO SCH (20:33)
[2023-02-03] MEDS: Acetaminophen 325 MG Tab PO PRN ×2 (01:51→08:41)
[2023-02-03] MEDS: Clindamycin Phosphate in D5W 600 MG in Premix Bag 1 BAG IV SCH ×4 (03:20→12:37)
[2023-02-03] MEDS: Piperacillin/Tazobactam 3.375 GM in Sodium Chloride 0.9% 100 ML IV SCH (06:34)
[2023-02-03] MEDS: Levothyroxine 100 MCG Tab PO SCH (06:35)
[2023-02-03 06:50] LABS: CARBON DIOXIDE,CO2 23.5 mmol/L (21.0-32.0); CREATININE 0.9 mg/dL (0.8-1.3); EST CRCL DRUG DOSING (CG) 82.24 mL/min; POTASSIUM,K 3.6 mmol/L (3.5-5.1)
[2023-02-03 07:05] LABS: HEMATOCRIT 39.9 % (38.0-50.0); HEMOGLOBIN 13.5 g/dL (13.0-17.0); MEAN CORPUSCULAR HEMOGLOBIN 28.8 pg (27.0-32.0); MEAN CORPUSCULAR HGB CONC 33.8 g/dL (31.0-37.0); MEAN CORPUSCULAR VOLUME 85.1 fL (80.0-98.0); PLATELET COUNT,PLT 229 K/uL (150-400); RED BLOOD CELL COUNT 4.69 M/uL (4.50-5.90); WHITE BLOOD CELL COUNT,WBC 9.36 K/uL (4.0-11.0)
[2023-02-03 07:30] LABS: EOSINOPHILS ABSOLUTE MAN 0.3 (0.0-0.7); EOSINOPHILS PERCENT MAN 3 % (0.0-7.0); LYMPHOCYTES ABSOLUTE MAN 1.9 (0.6-2.4); LYMPHOCYTES PERCENT MAN 20 % (16.0-40.0); MONOCYTES ABSOLUTE MAN 0.2 (0.0-0.8); MONOCYTES PERCENT MAN 2 % (0.0-15.0); MYELOCYTE ABSOLUTE MAN 0.1; MYELOCYTE PERCENT MAN 1 %; SEG NEUTROPHILS ABSOLUTE MAN 6.9 (1.4-5.7); SEG NEUTROPHILS PERCENT MAN 74 % (48.0-80.0)
[2023-02-03] MEDS: metFORMIN 500 MG Tab PO SCH (08:40)
[2023-02-03] MEDS: Nicotine 14 MG/24 Hr Patch TRDERM SCH (08:41)
[2023-02-03] MEDS: Sertraline 50 MG Tab PO SCH (08:41)
[2023-02-03] MEDS: Clopidogrel 75 MG Tab PO SCH (08:41)
[2023-02-03] MEDS: Cholecalciferol (Vitamin D3) 25 MCG Tab PO SCH (08:41)
[2023-02-03] MEDS: Insulin Aspart 100 Units/ML 3 ML Pen SUBCUT SCH ×2 (08:46→12:37)
[2023-02-03] MEDS: Isosorbide Dinitrate 10 MG Tab PO SCH (08:47)
[2023-02-03] MEDS: Atenolol 50 MG Tab PO SCH (08:47)
[2023-02-03] MEDS: fluvoxaMINE 50 MG Tab PO SCH (08:51)
== END 2023-02-03 12:10 | disposition home or self-care (01) | DRG 255 ==
LOC: MW.ED 12:44 → MW.MS 15:24
PROVIDERS: ADMIT Internal Medicine; ATTEND Internal Medicine
PROC: 0Y6T0Z0 Detachment at Right 3rd Toe, Complete, Open Approach (ICD-10-PCS; principal; 2023-02-02)
DX: E11.52 Type 2 diabetes mellitus with diabetic peripheral angiopathy with gangrene (principal); A48.0 Gas gangrene; I10 Essential (primary) hypertension; E78.00 Pure hypercholesterolemia, unspecified; I25.10 Atherosclerotic heart disease of native coronary artery without angina pectoris; E03.9 Hypothyroidism, unspecified; F17.210 Nicotine dependence, cigarettes, uncomplicated; F17.200 Nicotine dependence, unspecified, uncomplicated; Z79.4 Long term (current) use of insulin; Z79.899 Other long term (current) drug therapy; Z85.828 Personal history of other malignant neoplasm of skin; Z95.5 Presence of coronary angioplasty implant and graft; Z86.73 Personal history of transient ischemic attack (TIA), and cerebral infarction without residual deficits
CPT/HCPCS: 01480; 36415; 73630-26-RT; 73630-RT; 73720-26-RT; 73720-RT; 76000; 76000-26; 80048; 80053; 80202; 82947; 83036; 83605; 85025; 85610; 87040; 87070; 87075; 87077; 87186; 87205; 87324; 88305; 88311; 96365; 97162-GP; 97530-GP; 99222; 99232; 99239; 99283; 99285-25; A9270-GY; A9577; J1650; J1815-GY; J2370; J2543; J2704; J2795; J3010; J3370; J3475; J3490; J7050

== ENCOUNTER 2023-02-03 19:56 | Emergency (ER) | payer OTHER, MEDICAID | END 2023-02-03 20:49 | disposition home or self-care (01) | LOC: MW.ED 19:56 | DX: R26.2 Difficulty in walking, not elsewhere classified (principal); I25.10 Atherosclerotic heart disease of native coronary artery without angina pectoris; E78.00 Pure hypercholesterolemia, unspecified; I10 Essential (primary) hypertension; I25.2 Old myocardial infarction; E11.9 Type 2 diabetes mellitus without complications; E03.9 Hypothyroidism, unspecified; Z79.02 Long term (current) use of antithrombotics/antiplatelets; Z79.84 Long term (current) use of oral hypoglycemic drugs; Z79.899 Other long term (current) drug therapy | CPT/HCPCS: 99282; 99283 ==

== ENCOUNTER 2023-02-04 04:10 | Emergency (ER) | payer OTHER, MEDICAID ==
[2023-02-04] MEDS ORDERED: Sodium Chloride 0.9% 1,000 ML IV ONE (04:13)
[2023-02-04 04:51] LABS: BASOPHILS PERCENT AUTO 0.2 % (0.0-1.5); EOSINOPHILS ABSOLUTE AUTO 0.4 K/uL (0.0-0.7); EOSINOPHILS PERCENT AUTO 3.4 % (0.0-7.0); HEMOGLOBIN 15.8 g/dL (13.0-17.0); LYMPHOCYTES ABSOLUTE AUTO 1.2 K/uL (0.6-2.4); LYMPHOCYTES PERCENT AUTO 9.9 % (16.0-40.0); MEAN CORPUSCULAR HEMOGLOBIN 29.3 pg (27.0-32.0); MEAN CORPUSCULAR HGB CONC 35.9 g/dL (31.0-37.0); MEAN CORPUSCULAR VOLUME 81.5 fL (80.0-98.0); MONOCYTES ABSOLUTE AUTO 1.2 K/uL (0.0-0.8); MONOCYTES PERCENT AUTO 10.1 % (0.0-15.0); NEUTROPHILS PERCENT AUTO 76.4 % (48.0-80.0); NRBC ABSOLUTE 0 K/uL; PLATELET COUNT,PLT 228 K/uL (150-400); WHITE BLOOD CELL COUNT,WBC 11.77 K/uL (4.0-11.0)
[2023-02-04 04:58] LABS: A/G RATIO 0.9 (0.9-1.6); ALANINE AMINOTRANSFERASE,ALT 45 IU/L (14-63); ALBUMIN 2.7 g/dL (3.4-5.0); ALKALINE PHOSPHATASE 82 U/L (46-116); ASPARTATE AMNIOTRANSFERASE,AST 41 IU/L (15-37); BILIRUBIN TOTAL 0.4 mg/dL (0.2-1.0); BLOOD UREA NITROGEN,BUN 8 mg/dL (7.0-18.0); CALCIUM 8.4 mg/dL (8.5-10.1); CHLORIDE,CL 105 mmol/L (98-107); CREATININE 0.8 mg/dL (0.8-1.3); EST CRCL DRUG DOSING (CG) 87.45 mL/min; GLUCOSE RANDOM 103 mg/dL (74-106); LIPASE 46 U/L (73-393); MAGNESIUM 1.2 mg/dL (1.8-2.4); POTASSIUM,K 3.6 mmol/L (3.5-5.1); PROTEIN TOTAL,TP 5.8 g/dL (6.4-8.2); SODIUM,NA 139 mmol/L (136-148)
[2023-02-04 04:59] LABS: ESTIMATED GFR 97 mL/min (>60); ETHANOL BLOOD MEDICAL < 3.0 mg/dL
[2023-02-04 04:59] LABS: APPEARANCE,URINE CLEAR; BILIRUBIN,URINE NEGATIVE (NEGATIVE); COLOR,URINE YELLOW; GLUCOSE,URINE NEGATIVE (NEGATIVE); KETONES,URINE NEGATIVE (NEGATIVE); LEUKOCYTE ESTERASE,URINE NEGATIVE (NEGATIVE); NITRITE,URINE NEGATIVE (NEGATIVE); OCCULT BLOOD,URINE NEGATIVE (NEGATIVE); PROTEIN,URINE NEGATIVE (NEGATIVE); UROBILINOGEN,URINE 0.2 EU/dL (<2.0)
[2023-02-04] MEDS ORDERED: Magnesium Sulfate/Water 2 GM in Premix Bag 1 BAG IV ONE (04:59)
[2023-02-04] MEDS ORDERED: Acetaminophen 500 MG Tab PO ONE (05:01)
[2023-02-04 05:03] LABS: LACTIC ACID 1.9 mmol/L (0.4-2.0)
== END 2023-02-04 11:20 | disposition home or self-care (01) ==
LOC: MW.ED 04:10
DX: R62.7 Adult failure to thrive (principal); I25.10 Atherosclerotic heart disease of native coronary artery without angina pectoris; E78.00 Pure hypercholesterolemia, unspecified; I10 Essential (primary) hypertension; I25.2 Old myocardial infarction; E11.9 Type 2 diabetes mellitus without complications; E03.9 Hypothyroidism, unspecified; Z86.73 Personal history of transient ischemic attack (TIA), and cerebral infarction without residual deficits; Z79.4 Long term (current) use of insulin; Z79.02 Long term (current) use of antithrombotics/antiplatelets; Z79.899 Other long term (current) drug therapy
CPT/HCPCS: 36415; 80053; 80307; 81003; 83605; 83690; 83735; 85025; 87324; 96361; 96365; 99284; A9270; J3475; J7030; 99285

== ENCOUNTER 2023-02-15 19:07 | Emergency (ER) | payer OTHER, MEDICARE, MEDICAID ==
[2023-02-15] MEDS ORDERED: Sodium Chloride 0.9% 10 ML Syringe FLUSH PRN (19:43)
[2023-02-15] MEDS ORDERED: Sodium Chloride 0.9% 20 ML SDV IV PRN (19:43)
[2023-02-15] MEDS ORDERED: Sodium Chloride 0.9% 2.5 ML Syringe FLUSH PRN (19:43)
[2023-02-15] MEDS ORDERED: Sodium Chloride 0.9% 1,000 ML IV STA (19:43)
[2023-02-15] MEDS ORDERED: HYDROmorphone 1 MG/ML Syringe IVPUSH ONE (19:46)
[2023-02-15 20:14] LABS: BASOPHILS ABSOLUTE AUTO 0.1 K/uL (0.0-0.1); BASOPHILS PERCENT AUTO 0.7 % (0.0-1.5); EOSINOPHILS ABSOLUTE AUTO 0.3 K/uL (0.0-0.7); EOSINOPHILS PERCENT AUTO 3.6 % (0.0-7.0); HEMATOCRIT 45.3 % (38.0-50.0); HEMOGLOBIN 15.7 g/dL (13.0-17.0); LYMPHOCYTES ABSOLUTE AUTO 1.2 K/uL (0.6-2.4); LYMPHOCYTES PERCENT AUTO 17.9 % (16.0-40.0); MEAN CORPUSCULAR HGB CONC 34.7 g/dL (31.0-37.0); MEAN CORPUSCULAR VOLUME 83.7 fL (80.0-98.0); MONOCYTES ABSOLUTE AUTO 0.6 K/uL (0.0-0.8); MONOCYTES PERCENT AUTO 8.5 % (0.0-15.0); NEUTROPHILS ABSOLUTE AUTO 4.8 K/uL (1.4-5.7); NEUTROPHILS PERCENT AUTO 69.3 % (48.0-80.0); NRBC ABSOLUTE 0 K/uL; PLATELET COUNT,PLT 252 K/uL (150-400); RED BLOOD CELL COUNT 5.41 M/uL (4.50-5.90); WHITE BLOOD CELL COUNT,WBC 6.86 K/uL (4.0-11.0)
[2023-02-15 20:23] LABS: INR 1.12 (0.86-1.11)
[2023-02-15 20:35] LABS: A/G RATIO 0.9 (0.9-1.6); ALANINE AMINOTRANSFERASE,ALT 39 IU/L (14-63); ALBUMIN 2.9 g/dL (3.4-5.0); ALKALINE PHOSPHATASE 70 U/L (46-116); ASPARTATE AMNIOTRANSFERASE,AST 27 IU/L (15-37); BILIRUBIN TOTAL 0.5 mg/dL (0.2-1.0); BLOOD UREA NITROGEN,BUN 12 mg/dL (7.0-18.0); CALCIUM 8.8 mg/dL (8.5-10.1); CARBON DIOXIDE,CO2 30.8 mmol/L (21.0-32.0); CHLORIDE,CL 106 mmol/L (98-107); CREATININE 0.7 mg/dL (0.8-1.3); EST CRCL DRUG DOSING (CG) 99.94 mL/min; GLUCOSE RANDOM 121 mg/dL (74-106); MAGNESIUM 1.6 mg/dL (1.8-2.4); POTASSIUM,K 4.1 mmol/L (3.5-5.1); SODIUM,NA 142 mmol/L (136-148)
[2023-02-15 20:36] LABS: ESTIMATED GFR 101 mL/min (>60); ETHANOL BLOOD MEDICAL < 3.0 mg/dL
[2023-02-15 20:37] LABS: LACTIC ACID 0.8 mmol/L (0.4-2.0)
[2023-02-15] MEDS ORDERED: Iopamidol 755 MG/ML 500 ML Multipack Bottle IVPUSH STA (21:45)
[2023-02-15] MEDS ORDERED: Magnesium Sulfate/Water 2 GM in Premix Bag 1 BAG IV ONE (22:11)
[2023-02-15] MEDS ORDERED: Bacitracin Oint 28.35 GM Tube TOP STA (22:49)
== END 2023-02-16 00:06 | disposition home or self-care (01) ==
LOC: MW.ED 19:07
DX: R19.7 Diarrhea, unspecified (principal); E83.42 Hypomagnesemia; I25.10 Atherosclerotic heart disease of native coronary artery without angina pectoris; I10 Essential (primary) hypertension; I25.2 Old myocardial infarction; E78.00 Pure hypercholesterolemia, unspecified; E03.9 Hypothyroidism, unspecified; E11.9 Type 2 diabetes mellitus without complications; Z95.5 Presence of coronary angioplasty implant and graft; Z86.73 Personal history of transient ischemic attack (TIA), and cerebral infarction without residual deficits; Z79.02 Long term (current) use of antithrombotics/antiplatelets; Z79.4 Long term (current) use of insulin; Z79.84 Long term (current) use of oral hypoglycemic drugs; Z79.899 Other long term (current) drug therapy
CPT/HCPCS: 36415; 74177; 80053; 80307; 83605; 83735; 85025; 85610; 87040; 96361; 96365; 96366; 96375; 99285; A9270; J1170; J3475; J3490; J7030; Q9967

== ENCOUNTER 2023-02-21 19:40 | Emergency (ER) | payer OTHER, MEDICAID ==
[2023-02-21 20:19] LABS: INR 1.14 (0.86-1.11); PTT,PARTIAL THROMBOPLSTIN TIME 27.5 SEC (23.9-30.7)
[2023-02-21 21:42] LABS: HEMOGLOBIN 15.5 g/dL (13.0-17.0); MEAN CORPUSCULAR HEMOGLOBIN 29.1 pg (27.0-32.0); MEAN CORPUSCULAR HGB CONC 34.4 g/dL (31.0-37.0); MEAN CORPUSCULAR VOLUME 84.6 fL (80.0-98.0); PLATELET COUNT,PLT 250 K/uL (150-400); RED BLOOD CELL COUNT 5.32 M/uL (4.50-5.90); WHITE BLOOD CELL COUNT,WBC 7.34 K/uL (4.0-11.0)
[2023-02-21 22:09] LABS: BAND ABSOLUTE MAN 0.6; BAND PERCENT MAN 8 %; EOSINOPHILS ABSOLUTE MAN 0.3 (0.0-0.7); EOSINOPHILS PERCENT MAN 4 % (0.0-7.0); LYMPHOCYTES ABSOLUTE MAN 1.1 (0.6-2.4); LYMPHOCYTES PERCENT MAN 15 % (16.0-40.0); METAMYELOCYTE ABSOLUTE MAN 0.1; METAMYELOCYTE PERCENT MAN 1 %; MONOCYTES ABSOLUTE MAN 0.6 (0.0-0.8); MONOCYTES PERCENT MAN 8 % (0.0-15.0); SEG NEUTROPHILS ABSOLUTE MAN 4.7 (1.4-5.7); SEG NEUTROPHILS PERCENT MAN 64 % (48.0-80.0)
[2023-02-21 22:27] LABS: A/G RATIO 0.8 (0.9-1.6); ALBUMIN 2.7 g/dL (3.4-5.0); BILIRUBIN TOTAL 0.4 mg/dL (0.2-1.0); CARBON DIOXIDE,CO2 29.1 mmol/L (21.0-32.0); EST CRCL DRUG DOSING (CG) 57.49 mL/min; MAGNESIUM 1.5 mg/dL (1.8-2.4); POTASSIUM,K 4.3 mmol/L (3.5-5.1); PROTEIN TOTAL,TP 5.9 g/dL (6.4-8.2)
[2023-02-21] MEDS ORDERED: Magnesium Sulfate/Water 2 GM in Premix Bag 1 BAG IV ONE (22:33)
[2023-02-21 23:31] LABS: APPEARANCE,URINE CLEAR; BILIRUBIN,URINE NEGATIVE (NEGATIVE); COLOR,URINE YELLOW; GLUCOSE,URINE NEGATIVE (NEGATIVE); KETONES,URINE NEGATIVE (NEGATIVE); LEUKOCYTE ESTERASE,URINE NEGATIVE (NEGATIVE); NITRITE,URINE NEGATIVE (NEGATIVE); OCCULT BLOOD,URINE NEGATIVE (NEGATIVE); PROTEIN,URINE NEGATIVE (NEGATIVE); UROBILINOGEN,URINE 0.2 EU/dL (<2.0)
== END 2023-02-22 03:27 | disposition home or self-care (01) ==
LOC: MW.ED 19:40
DX: R62.7 Adult failure to thrive (principal); I25.10 Atherosclerotic heart disease of native coronary artery without angina pectoris; I10 Essential (primary) hypertension; E78.00 Pure hypercholesterolemia, unspecified; I25.2 Old myocardial infarction; E11.51 Type 2 diabetes mellitus with diabetic peripheral angiopathy without gangrene; E03.9 Hypothyroidism, unspecified; Z86.73 Personal history of transient ischemic attack (TIA), and cerebral infarction without residual deficits; Z79.4 Long term (current) use of insulin; Z79.02 Long term (current) use of antithrombotics/antiplatelets; Z79.899 Other long term (current) drug therapy
CPT/HCPCS: 36415; 70450; 80053; 81003; 83735; 84484; 85025; 85610; 85730; 93005; 96365; 99285; J3475; 93010; 99283

== ENCOUNTER 2023-03-13 21:26 | Emergency (ER) | payer OTHER, MEDICAID ==
[2023-03-13 22:32] LABS: BASOPHILS PERCENT AUTO 0.4 % (0.0-1.5); EOSINOPHILS ABSOLUTE AUTO 0.2 K/uL (0.0-0.7); EOSINOPHILS PERCENT AUTO 2.6 % (0.0-7.0); HEMOGLOBIN 16.3 g/dL (13.0-17.0); MEAN CORPUSCULAR HEMOGLOBIN 29.1 pg (27.0-32.0); MEAN CORPUSCULAR HGB CONC 34.7 g/dL (31.0-37.0); MEAN CORPUSCULAR VOLUME 83.8 fL (80.0-98.0); MONOCYTES ABSOLUTE AUTO 0.6 K/uL (0.0-0.8); NEUTROPHILS ABSOLUTE AUTO 5.5 K/uL (1.4-5.7); NRBC ABSOLUTE 0 K/uL; PLATELET COUNT,PLT 222 K/uL (150-400); RED BLOOD CELL COUNT 5.61 M/uL (4.50-5.90); WHITE BLOOD CELL COUNT,WBC 7.36 K/uL (4.0-11.0)
[2023-03-13 22:53] LABS: A/G RATIO 0.8 (0.9-1.6); ALBUMIN 2.7 g/dL (3.4-5.0); BILIRUBIN TOTAL 0.5 mg/dL (0.2-1.0); CALCIUM 8.2 mg/dL (8.5-10.1); CARBON DIOXIDE,CO2 28.4 mmol/L (21.0-32.0); CREATININE 0.9 mg/dL (0.8-1.3); EST CRCL DRUG DOSING (CG) 56.21 mL/min; POTASSIUM,K 3.6 mmol/L (3.5-5.1); PROTEIN TOTAL,TP 6.2 g/dL (6.4-8.2)
== END 2023-03-14 00:15 | disposition home or self-care (01) ==
LOC: MW.ED 21:26
DX: R62.7 Adult failure to thrive (principal); I12.9 Hypertensive chronic kidney disease with stage 1 through stage 4 chronic kidney disease, or unspecified chronic kidney disease; E11.22 Type 2 diabetes mellitus with diabetic chronic kidney disease; N18.9 Chronic kidney disease, unspecified; I25.10 Atherosclerotic heart disease of native coronary artery without angina pectoris; E78.00 Pure hypercholesterolemia, unspecified; E03.9 Hypothyroidism, unspecified; F17.210 Nicotine dependence, cigarettes, uncomplicated; Z86.73 Personal history of transient ischemic attack (TIA), and cerebral infarction without residual deficits; Z79.4 Long term (current) use of insulin; Z79.84 Long term (current) use of oral hypoglycemic drugs; Z79.899 Other long term (current) drug therapy
CPT/HCPCS: 36415; 80053; 85025; 99284

== ENCOUNTER 2023-03-15 16:30 | Emergency (ER) | payer OTHER, MEDICAID ==
[2023-03-15] MEDS ORDERED: Sodium Chloride 0.9% 2.5 ML Syringe FLUSH PRN (17:24)
[2023-03-15] MEDS ORDERED: Sodium Chloride 0.9% 10 ML Syringe FLUSH PRN (17:24)
[2023-03-15 18:02] LABS: BASOPHILS ABSOLUTE AUTO 0.1 K/uL (0.0-0.1); BASOPHILS PERCENT AUTO 0.8 % (0.0-1.5); EOSINOPHILS ABSOLUTE AUTO 0.2 K/uL (0.0-0.7); EOSINOPHILS PERCENT AUTO 3.4 % (0.0-7.0); HEMATOCRIT 48.2 % (38.0-50.0); HEMOGLOBIN 16.7 g/dL (13.0-17.0); LYMPHOCYTES ABSOLUTE AUTO 1.1 K/uL (0.6-2.4); LYMPHOCYTES PERCENT AUTO 16.9 % (16.0-40.0); MEAN CORPUSCULAR HEMOGLOBIN 29.6 pg (27.0-32.0); MEAN CORPUSCULAR HGB CONC 34.6 g/dL (31.0-37.0); MEAN CORPUSCULAR VOLUME 85.3 fL (80.0-98.0); MONOCYTES ABSOLUTE AUTO 0.6 K/uL (0.0-0.8); MONOCYTES PERCENT AUTO 9.2 % (0.0-15.0); NEUTROPHILS ABSOLUTE AUTO 4.4 K/uL (1.4-5.7); NEUTROPHILS PERCENT AUTO 69.7 % (48.0-80.0); NRBC ABSOLUTE 0 K/uL; PLATELET COUNT,PLT 205 K/uL (150-400); RED BLOOD CELL COUNT 5.65 M/uL (4.50-5.90); WHITE BLOOD CELL COUNT,WBC 6.38 K/uL (4.0-11.0)
[2023-03-15 18:26] LABS: A/G RATIO 0.9 (0.9-1.6); ALANINE AMINOTRANSFERASE,ALT 103 IU/L (14-63); ALBUMIN 2.8 g/dL (3.4-5.0); ALKALINE PHOSPHATASE 91 U/L (46-116); ASPARTATE AMNIOTRANSFERASE,AST 92 IU/L (15-37); BILIRUBIN TOTAL 0.8 mg/dL (0.2-1.0); BLOOD UREA NITROGEN,BUN 12 mg/dL (7.0-18.0); CALCIUM 8.6 mg/dL (8.5-10.1); CHLORIDE,CL 102 mmol/L (98-107); CREATININE 0.9 mg/dL (0.8-1.3); GLUCOSE RANDOM 129 mg/dL (74-106); MAGNESIUM 1.6 mg/dL (1.8-2.4); POTASSIUM,K 3.6 mmol/L (3.5-5.1); SODIUM,NA 142 mmol/L (136-148)
[2023-03-15 18:36] LABS: ESTIMATED GFR 94 mL/min (>60)
== END 2023-03-15 18:59 | disposition home or self-care (01) ==
LOC: MW.ED 16:30
DX: E11.9 Type 2 diabetes mellitus without complications (principal); R54 Age-related physical debility; R19.7 Diarrhea, unspecified; I25.10 Atherosclerotic heart disease of native coronary artery without angina pectoris; I10 Essential (primary) hypertension; E78.00 Pure hypercholesterolemia, unspecified; I25.2 Old myocardial infarction; E03.9 Hypothyroidism, unspecified; Z79.899 Other long term (current) drug therapy; Z79.02 Long term (current) use of antithrombotics/antiplatelets; Z79.4 Long term (current) use of insulin
CPT/HCPCS: 36415; 80053; 83735; 85025; 99284; J3490

== ENCOUNTER 2023-03-16 18:00 | Observation (INO) | payer OTHER, MEDICAID ==
[2023-03-16] MEDS ORDERED: Sodium Chloride 0.9% 2.5 ML Syringe FLUSH PRN (19:47)
[2023-03-16] MEDS ORDERED: Sodium Chloride 0.9% 10 ML Syringe FLUSH PRN (19:47)
[2023-03-16 20:23] LABS: BASOPHILS ABSOLUTE AUTO 0.1 K/uL (0.0-0.1); EOSINOPHILS ABSOLUTE AUTO 0.2 K/uL (0.0-0.7); EOSINOPHILS PERCENT AUTO 3.4 % (0.0-7.0); LYMPHOCYTES ABSOLUTE AUTO 1.2 K/uL (0.6-2.4); LYMPHOCYTES PERCENT AUTO 19.3 % (16.0-40.0); MEAN CORPUSCULAR HGB CONC 34.8 g/dL (31.0-37.0); MEAN CORPUSCULAR VOLUME 86.3 fL (80.0-98.0); MONOCYTES ABSOLUTE AUTO 0.5 K/uL (0.0-0.8); MONOCYTES PERCENT AUTO 7.7 % (0.0-15.0); NEUTROPHILS ABSOLUTE AUTO 4.1 K/uL (1.4-5.7); NEUTROPHILS PERCENT AUTO 68.6 % (48.0-80.0); NRBC ABSOLUTE 0 K/uL; PLATELET COUNT,PLT 177 K/uL (150-400); RED BLOOD CELL COUNT 5.33 M/uL (4.50-5.90); WHITE BLOOD CELL COUNT,WBC 5.97 K/uL (4.0-11.0)
[2023-03-16 20:45] LABS: A/G RATIO 0.9 (0.9-1.6); ALBUMIN 2.8 g/dL (3.4-5.0); BILIRUBIN TOTAL 0.7 mg/dL (0.2-1.0); CALCIUM 8.3 mg/dL (8.5-10.1); CARBON DIOXIDE,CO2 28.9 mmol/L (21.0-32.0); EST CRCL DRUG DOSING (CG) 46.64 mL/min; POTASSIUM,K 4.1 mmol/L (3.5-5.1); PROTEIN TOTAL,TP 6.1 g/dL (6.4-8.2)
[2023-03-16] MEDS ORDERED: Acetaminophen 325 MG Tab PO PRN (22:03)
[2023-03-17] MEDS ORDERED: 50% Dextrose in Water 50 ML Syringe IVPUSH PRN (00:14)
[2023-03-17] MEDS ORDERED: Glucagon,Human Recombinant 1 MG Vial IM PRN (00:14)
[2023-03-17] MEDS: Insulin Aspart 100 Units/ML 3 ML Pen SUBCUT SCH ×2 (08:01→11:54)
== END 2023-03-17 11:25 | disposition home or self-care (01) ==
LOC: MW.ED 18:00 → MW.MS 19:47
PROVIDERS: ADMIT Internal Medicine; ATTEND Internal Medicine
DX: R19.7 Diarrhea, unspecified (principal); R53.1 Weakness; I10 Essential (primary) hypertension; I25.2 Old myocardial infarction; I25.10 Atherosclerotic heart disease of native coronary artery without angina pectoris; E78.00 Pure hypercholesterolemia, unspecified; E11.51 Type 2 diabetes mellitus with diabetic peripheral angiopathy without gangrene; E03.9 Hypothyroidism, unspecified; F17.210 Nicotine dependence, cigarettes, uncomplicated; Z79.4 Long term (current) use of insulin; Z79.84 Long term (current) use of oral hypoglycemic drugs; Z79.890 Hormone replacement therapy; Z79.02 Long term (current) use of antithrombotics/antiplatelets; Z95.5 Presence of coronary angioplasty implant and graft; Z98.890 Other specified postprocedural states; Z74.1 Need for assistance with personal care
CPT/HCPCS: 36415; 80053; 82947; 85025; 87045; 87046; 87324; 87328; 87329; 87449; 87899; 99285; G0378